=== PATIENT | female | born 1970 | race Caucasian/White ===

== ENCOUNTER 2016-08-30 12:50 | Day surgery (SDC) | payer BC ==
[2016-08-26 10:57] LABS: ABSOLUTE EOSINOPHILS # (AUTO) 0.1 10^3/uL (0.0-0.6); ABSOLUTE LYMPHOCYTES (AUTO) 1.8 10^3/uL (0.5-4.7); ABSOLUTE MONOCYTES (AUTO) 0.5 10^3/uL (0.1-1.4); BASOPHILS % (AUTO) 0.4 % (0-2); EOSINOPHILS % (AUTO) 0.7 % (0-6); HEMATOCRIT 41.7 % (36.0-47.0); HEMOGLOBIN 14.3 g/dL (12.0-15.5); HGB HCT DIFFERENCE 1.2; LYMPHOCYTES % (AUTO) 21.1 % (13-45); MEAN CORPUSCULAR HEMOGLOBIN 31.4 pg (27.0-33.4); MEAN CORPUSCULAR HGB CONC 34.3 g/dL (32.0-36.0); MEAN CORPUSCULAR VOLUME 91 fl (80-97); MONOCYTES % (AUTO) 6.4 % (3-13); RED BLOOD COUNT 4.57 10^6/uL (3.72-5.28); RED CELL DISTRIBUTION WIDTH 13.1 % (11.5-14.0); SEGMENTED NEUTROPHILS % (AUTO) 71.4 % (42-78); WHITE BLOOD COUNT 8.4 10^3/uL (4.0-10.5)
[2016-08-26 10:59] LABS: APPEARANCE,URINE CLEAR; BILIRUBIN,URINE NEGATIVE (NEGATIVE); GLUCOSE, URINE >=500 mg/dL (NEGATIVE); KETONES,URINE NEGATIVE (NEGATIVE); LEUKOCYTE ESTERASE,URINE NEGATIVE (NEGATIVE); NITRITE,URINE NEGATIVE (NEGATIVE); PROTEIN,URINE NEGATIVE (NEGATIVE); URINE SPECIFIC GRAVITY 1.028; UROBILINOGEN,URINE NEGATIVE mg/dL (<2.0)
[2016-08-26 11:29] LABS: ANION GAP 13 (5-19); BLOOD UREA NITROGEN 15 mg/dL (7-20); CALCIUM 9.3 mg/dL (8.4-10.2); CARBON DIOXIDE 26 mmol/L (22-30); CHLORIDE 102 mmol/L (98-107); CREATININE RESULT 0.49 mg/dL (0.52-1.25); GLUCOSE 103 mg/dL (75-110); POTASSIUM 4.1 mmol/L (3.6-5.0); SODIUM 140.6 mmol/L (137-145)
--- NOTE | 2016-08-26 19:02 | EKG REPORT ---
SEVERITY:- NORMAL ECG - SINUS RHYTHM : Confirmed by: Serafin Molina 26-Aug-2016 19:01:02
[~2016-08-30 12:50] MED LIST: CLINDAMYCIN 600 MG/D5W RTU 600 MG/50 ML RTUPB IV PRN; LACTATED RINGERS 1000 ML IV PRN; LIDOCAINE 0.5% INJ-PF (5 MG/ML) 50 ML SDV SUBCUT PRN
[2016-08-30] MEDS ORDERED: RINGERS SOLUTION,LACTATED 1,000 ML IV PRN (13:54)
[2016-08-30] MEDS ORDERED: LIDOCAINE 1% INJ-PF (10 MG/ML) 30 ML SDV ONE (13:59)
[2016-08-30] MEDS ORDERED: BUPIVACAINE HCL 0.5 % INJ/PF 30 ML SDV ONE (13:59)
[2016-08-30] MEDS ORDERED: METOCLOPRAMIDE HCL INJ/PF 10 MG/2 ML SDV ONE (14:00)
[2016-08-30] MEDS ORDERED: METOCLOPRAMIDE HCL INJ/PF 10 MG/2 ML SDV IV ONE (14:00)
[2016-08-30] MEDS ORDERED: SCOPOLAMINE HYDROBROMIDE 1.5 MG PATCH.TD72 TD ONE (14:00)
[2016-08-30] MEDS ORDERED: FAMOTIDINE INJ/PF 20 MG/2 ML SDV IV ONE ×2 (14:00)
[2016-08-30] MEDS ORDERED: SCOPOLAMINE HYDROBROMIDE 1.5 MG PATCH.TD72 ONE (14:00)
[2016-08-30] MEDS ORDERED: MIDAZOLAM 2 MG/2 ML INJ IV ONE (14:00)
[2016-08-30] MEDS: ALBUTEROL SULFATE 0.083% NEB 2.5 MG/3 ML AMPUL NEB ONE ×2 (14:41→20:07)
[2016-08-30] MEDS ORDERED: MIDAZOLAM 2 MG/2 ML INJ ONE (15:15)
[2016-08-30] MEDS ORDERED: FENTANYL CITRATE INJ/PF 250 MCG/5 ML AMPULE ONE (15:15)
[2016-08-30] MEDS ORDERED: ACETAMINOPHEN 100 ML IV ONE (15:16)
[2016-08-30] MEDS ORDERED: PROPOFOL INJ 200 MG/20 ML VIAL IV ONE (15:16)
[2016-08-30] MEDS ORDERED: DEXAMETHASONE SOD PHOSPHATE INJ 4 MG/1 ML VIAL ONE (15:56)
[2016-08-30] MEDS ORDERED: SUCCINYLCHOLINE CHLORIDE INJ 200 MG/10 ML VIAL ONE (15:56)
[2016-08-30] MEDS ORDERED: LIDOCAINE 2% INJ-PF (20 MG/ML) 10 ML AMPUL ONE (15:56)
[2016-08-30] MEDS ORDERED: ONDANSETRON HCL INJ/PF 4 MG/2 ML SDV ONE (15:56)
[2016-08-30] MEDS ORDERED: KETOROLAC TROMETHAMINE 60 MG/2 ML SDV ONE (15:56)
[2016-08-30] MEDS ORDERED: DIPHENHYDRAMINE HCL 50 MG/ML VIAL IV PRN (16:28)
[2016-08-30] MEDS ORDERED: FENTANYL CITRATE INJ/PF 100 MCG/2 ML AMPUL IV PRN ×3 (16:28)
[2016-08-30] MEDS ORDERED: PROMETHAZINE HCL INJ 25 MG/1 ML VIAL IV PRN ×2 (16:28)
[2016-08-30] MEDS ORDERED: OXYCODONE-ACETAMINOPHEN 5-325 MG TABLET PO PRN ×3 (16:28→17:12)
[2016-08-30] MEDS ORDERED: MEPERIDINE HCL/PF INJ 25 MG/1 ML DISP.SYRIN IV PRN (16:28)
[2016-08-30] MEDS ORDERED: MORPHINE SULFATE 10 MG/ML INJ IV PRN (16:28)
[2016-08-30] MEDS ORDERED: ONDANSETRON HCL INJ/PF 4 MG/2 ML SDV IV PRN (17:12)
--- NOTE | 2016-08-30 17:20 | Operative Report ---
Operative Report DATE OF SURGERY: 08/30/16 PREOPERATIVE DIAGNOSIS: Right Carpal Tunnel Syndrome, Cubital Tunnel Syndrome, Small Trigger Finger POSTOPERATIVE DIAGNOSIS: Same OPERATION: Right Cubital Tunnel Release, Endoscopic Carpal Tunnel Release, A1 Shalom Release Small Finger SURGEON: CYDNEY CORONADO ANESTHESIA: GA COMPLICATIONS: None ESTIMATED BLOOD LOSS: Minimal PROCEDURE: Indication for above procedure: 46-year-old female who presented to my office with findings and symptoms consistent with carpal tunnel, cubital tunnel syndrome and concomitant small finger trigger digit. At that point we discussed treatment options including continued conservative management versus operative intervention. After discussing surgery and its alternatives the joint decision was made to proceed with operative intervention. Procedure In Detail: Patient was seen and evaluated in the preoperative holding area. The RIGHT upper extremity was initialized and marked. Patient received 2g of Ancef IV for bacterial prophylaxis. Patient was taken back to the operative room where transferred to the operative table and placed under general anesthesia. Once they were adequately anesthetized and a nonsterile tourniquet was placed on the upper extremity. A surgical team debriefing was performed ensuring all instrumentation was available, the surgical procedure was discussed with possible concerns reviewed. The upper extremity was prepped with chlorhexidine and alcohol and draped in a sterile fashion. A timeout was done identifying correct patient, procedure and extremity everyone in attendance agree with this and verbalized no concerns. The extremity was exsanguinated the tourniquet was inflated to 250 mmHg. A longitudinal skin incision was made centered over the cubital tunnel. Careful dissection was done through the overlying soft tissues any peripheral vasculature was carefully coagulated with bipolar cautery. The branches of the medial antebrachial cutaneous nerve were identified and protected throughout the entirety of the case. Once within the confines of the cubital tunnel the ulnar nerve was identified at the proximal aspect of the wound. At this level I carefully released a medial portion of the triceps and the medial intermuscular septum freeing the ulnar nerve proximally of any overlying soft tissue compression. I then continued to track the ulnar nerve distally releasing Garcia's fascia. At the level of the FCU aponeurosis between the 2 heads of the FCU muscle. The fascia was released once again relieving any external compression from the ulnar nerve distally to the level of the first motor branch. I then freed up the nerve posteriorly ensuring there is no remaining soft tissue bands of tissue causing compression. During dissection of the nerve careful attention was directed at avoiding disruption of the ulnar nerve blood supply posteriorly. Elbow range of motion was then done from full flexion to full extension with full flexion there was no evidence of anterior subluxation of the ulnar nerve from the groove. And thus I determine patient would not require anterior subcutaneous ulnar nerve transposition. A peripheral vasculature was coagulated with bipolar cautery. Wound was irrigated with normal saline. Subcutaneous tissues were closed with interrupted 4-0 Monocryl and skin was closed a running subcuticular 3-0 Monocryl which will be later reinforced with Dermabond and Steri-Strips. A transverse skin incision was made just proximal to the wrist flexion crease ulnar to the palmaris longus. Blunt dissection was performed down to the palmaris longus tendon which was retracted radially. Deep to the palmaris longus tendon was the volar carpal ligament this was incised identifying the median nerve deep. With the use of a Chambers elevator any soft tissue was freed from the undersurface of the distal transverse carpal ligament. The hook of hamate was identified ulnarly. The ConMed cannulas were then introduced beginning with #1 progressing to a #3 gently dilating the carpal canal. I then introduced the scope within the cannula and identified transverse carpal ligament ensuring the median nerve was not visualized within the cannula. I triangulated distally with a 25-gauge needle identifying the distal aspect of the transverse carpal ligament, to ensure protection of the superficial palmar arch. The arthroscopic knife was used to incise the transverse carpal ligament under direct visualization with the arthroscopic camera. Any excess transverse fibers that remained after the first past were carefully released with a repeat pass. The median nerve was then directly visualized radially without disruption. Once this was completed I placed the #3 dilator and assured I got complete release of the transverse carpal ligament without residual compression. The median nerve was directly visualized and free of any overlying compression. I then turned my attention to release of the volar antebrachial fascia proximally. Once again a Chambers was used to open the wound and I proceeded with cannula #1 to #3. The arthroscope was introduced into the cannula and under direct visualization the volar antebrachial fascia was released. Once this was complete I copiusly irrigated the wound with normal saline. The skin incision was closed with 4-0 Monocryl subcutaneous and a running subcuticular 4-0 Monocryl. This was later reinforced with Dermabond and Steri-Strips. A oblique skin incision was made centered over the A1 shalom of the small finger. The radial and ulnar neurovascular bundles were identified and retracted from the wound. The A1 shalom was identified and incised. The A1 shalom was released to the level of the A2 shalom but not through the A2 shalom. The palmar aponeurotic shalom was released proximal to the A1 shalom. The tendon was retracted from the wound there is no residual catching or clicking with passive motion. Skin was closed with interrupted 3-0 Monocryl suture. Wounds were dressed with 4 x 4's, Torrez roll and Eric bandage. Sponge counts, instrument counts, needle counts counts were correct. Patient was then awoken from anesthesia. Transferred from the operating room table to the operating room stretcher. There was no intraoperative complications patient tolerated procedure well stable to PACU. Postoperative plan: Patient will follow-up in the office as scheduled which point we will proceed with wound check. She may begin gentle range of motion exercises but avoid any heavy lifting until her first postoperative appointment.
--- NOTE | 2016-08-30 17:22 | PDOC DISCHARGE SUMMARY ---
Discharge Summary (SDC) - Discharge Final Diagnosis: Right Carpal/Cubital Tunnel Syndrome, Small Finger Trigger Digit. Date of Surgery: 08/30/16 Discharge Date: 08/30/16 Condition: Good Forms: ASU Anesthesia D/C Instruction, Discharge POC-Surgical Service Treatment or Instructions: Schedule Follow Up w/ Dr. Jewel Coronado @ [facility] for Surgery to be seen in 10-14 days or as scheduled [place]: [place]: [place]: May remove dressing on postop day #3, keep incision covered and dry. Ice and elevate May begin finger range of motion attempting to make full fist. Stool softener of choice when on pain medication. Prescriptions: Oxycodone HCl/Acetaminophen [Percocet 5-325 mg Tablet] 1 - 2 tab PO ASDIR PRN # 50 tablet PRN Reason: Referrals: JEWEL CORONADO DO [ACTIVE STAFF] - Discharge Diet: As Tolerated Respiratory Treatments at Home: Deep Breathing/Coughing Discharge Activity: No Lifting Over 10 Pounds, No Lifting/Push/Pulling Report the Following to Your Physician Immediately: Fever over 101 Degrees, Unusual Bleeding, Redness, Swelling, Warmth, Numbness, Tingling Sensation
[2016-08-30] MEDS ORDERED: KETOROLAC TROMETHAMINE INJ/PF 30 MG/1 ML SDV IV PRN (19:46)
[2016-08-30 21:57] VITALS: BP 91/49
[2016-08-31] MEDS ORDERED: ACETAMINOPHEN 100 ML IV ONE (04:00)
== END 2016-08-30 22:10 | disposition home or self-care (01) ==
LOC: OROUT 12:50 → 4N 19:14 → OROUT 22:10
PROVIDERS: ATTEND Orthopaedic Surgery
PROC: 01N40ZZ Release Ulnar Nerve, Open Approach (ICD-10-PCS; principal; 2016-08-30 14:30)
PROC: 01N54ZZ Release Median Nerve, Percutaneous Endoscopic Approach (ICD-10-PCS; 2016-08-30 14:30)
PROC: 0LN70ZZ Release Right Hand Tendon, Open Approach (ICD-10-PCS; 2016-08-30 14:30)
DX: M65.351 Trigger finger, right little finger (principal); G56.01 Carpal tunnel syndrome, right upper limb; G56.21 Lesion of ulnar nerve, right upper limb; M25.531 Pain in right wrist; F17.210 Nicotine dependence, cigarettes, uncomplicated; E11.9 Type 2 diabetes mellitus without complications; G47.419 Narcolepsy without cataplexy; K21.9 Gastro-esophageal reflux disease without esophagitis; Z88.0 Allergy status to penicillin; Z79.899 Other long term (current) drug therapy; Z79.4 Long term (current) use of insulin
CPT/HCPCS: 93005; 36415; 82962; 85025; 81025; 80048; 81001; 83036; 71020; 93010; 94762; 64718; 29848; 26055; J2250; J1100; J1885 ×2; J3010; J3490 ×2; J2765; J0330; J2405; J2704; S0028; J0131; 1810

== ENCOUNTER 2017-03-23 09:15 | Emergency (ER) | payer SELFPAY ==
--- NOTE | 2017-03-23 09:30 | ER Document Report ---
HPI - HPI Patient complains to provider of: left thumb pain Onset: Other - several weeks, worse last week Onset/Duration: Gradual, Persistent, Worse Pain Level: 5 Context: 47-year-old right-handed female that works in the [email or web address] is complaining of left thumb pain that radiates from the MCP joint to mid forearm especially when she drives and has her hand around the steering wheel or working. No injury that she is aware of. No history of arthritis. LMP March 02. Associated Symptoms: None Exacerbated by: Movement Relieved by: Denies Similar symptoms previously: No Recently seen / treated by doctor: No - ROS ROS below otherwise negative: Yes Systems Reviewed and Negative: Yes All other systems reviewed and negative - REPRODUCTIVE Reproductive: DENIES: : - DERM Skin Color: Normal Past Medical History - General Information source: Patient - Social History Smoking Status: Unknown if Ever Smoked Frequency of alcohol use: None Drug Abuse: None Occupation: [email or web address] Lives with: Family Family History: Arthritis, CAD, COPD, CVA, DM, Hyperlipidemia, Hypertension, Malignancy. denies: Thyroid Disfunction Patient has suicidal ideation: No Patient has homicidal ideation: No Pulmonary Medical History: Reports: Hx Asthma - A CHILD, Hx Bronchitis, Hx Pneumonia Endocrine Medical History: Reports: Hx Diabetes Mellitus Type 2 Renal/ Medical History: Denies: Hx Peritoneal Dialysis GI Medical History: Reports: Hx Gastroesophageal Reflux Disease Musculoskeltal Medical History: Reports Hx Arthritis - HANDS, Reports Hx Musculoskeletal Deformity - Carpal tunnel, Reports Hx Musculoskeletal Trauma Traumatic Medical History: Reports: Hx Fractures - Fifth toe left foot Past Surgical History: Reports: Hx Appendectomy, Hx Orthopedic Surgery - Carpal tunnel left - Immunizations Hx Diphtheria, Pertussis, Tetanus Vaccination: Yes Vertical Provider Document - CONSTITUTIONAL Agree With Documented VS: Yes - INFECTION CONTROL TRAVEL OUTSIDE OF THE [place] IN LAST 30 DAYS: No - HEENT HEENT: Normocephalic - NECK Neck: Supple - RESPIRATORY O2 Sat by Pulse Oximetry: 100 - MUSCULOSKELETAL/EXTREMETIES Musculoskeletal/Extremeties: FROM, Tender - left base of thumb over radial tendon, No Edema Notes: non tender snuffbox - NEURO Level of Consciousness: Awake, Alert - DERM Integumentary: Warm, Dry Course - Re-evaluation Re-evalutation: 03/23/17 10:21 X-ray is negative - Vital Signs Vital signs: Temp Pulse Resp BP Pulse Ox 97.7 F 102 H 20 140/84 H 100 03/23/17 09:17 03/23/17 09:17 03/23/17 09:17 03/23/17 09:17 03/23/17 09:17 Procedures - Immobilization Left Thumb Time completed: 10:17 Pre-Proc Neuro Vasc Exam: Normal Immobilizer type: Thumb spica Performed by: PCT Post-Proc Neuro Vasc Exam: Normal Alignment checked and good: Yes Discharge - Discharge Clinical Impression: Left thumb tendinitis Condition: Good Disposition: HOME, SELF-CARE Instructions: Warm Packs ([facility]), Anti-Inflammatory Medication ([facility]), Temporary Splint ([facility]), Splint Precautions ([facility]), Tendonitis ([facility]), Acetaminophen Additional Instructions: splint few days see orthopedic doctor if persists warm compress motrin tylenol Please complete the patient satisfaction survey if you get one, and return it.. If you do not receive a survey, then you can go to the [facility] website, [email or web address] and place your comments about your very good care. Thank you very much. It was a pleasure being your medical provider today. Prescriptions: Ibuprofen [Motrin 600 mg Tablet] 600 mg PO Q8HP PRN #30 tablet PRN Reason: Forms: Return to Work Referrals: CYDNEY CORONADO, [ACTIVE STAFF] - Follow up as needed
[2017-03-23] MEDS ORDERED: ACETAMINOPHEN 325 MG TABLET PO ONE (09:45)
[2017-03-23] MEDS ORDERED: KETOROLAC TROMETHAMINE 60 MG/2 ML SDV IM ONE (09:45)
--- NOTE | 2017-03-23 10:29 | ER Document Report ---
HPI - HPI Patient complains to provider of: Left low back pain which radiates down her left leg Onset: Other - Several weeks Onset/Duration: Gradual, Worse Pain Level: 5 Context: 47 yo female with hx intermittent low back pain due to herniated disc developed it again since last week. Thought she was getting better until she stumbled over dog on friday. No saddle anesthesia, some pain into legs. No fever, IV drug use. Associated Symptoms: None Exacerbated by: Sitting, Movement Relieved by: Denies Similar symptoms previously: No Recently seen / treated by doctor: No - ROS ROS below otherwise negative: Yes Systems Reviewed and Negative: Yes All other systems reviewed and negative - REPRODUCTIVE Reproductive: DENIES: : - DERM Skin Color: Normal Past Medical History - General Information source: Patient - Social History Smoking Status: Unknown if Ever Smoked Frequency of alcohol use: None Drug Abuse: None Occupation: [employer] Lives with: Family Family History: Arthritis, CAD, COPD, CVA, DM, Hyperlipidemia, Hypertension, Malignancy. denies: Thyroid Disfunction Patient has suicidal ideation: No Patient has homicidal ideation: No Pulmonary Medical History: Reports: Hx Asthma - A CHILD, Hx Bronchitis, Hx Pneumonia Endocrine Medical History: Reports: Hx Diabetes Mellitus Type 2 Renal/ Medical History: Denies: Hx Peritoneal Dialysis GI Medical History: Reports: Hx Gastroesophageal Reflux Disease Musculoskeltal Medical History: Reports Hx Arthritis - HANDS, Reports Hx Musculoskeletal Deformity - Carpal tunnel, Reports Hx Musculoskeletal Trauma Traumatic Medical History: Reports: Hx Fractures - Fifth toe left foot Past Surgical History: Reports: Hx Appendectomy, Hx Orthopedic Surgery - Carpal tunnel left - Immunizations Hx Diphtheria, Pertussis, Tetanus Vaccination: Yes Vertical Provider Document - CONSTITUTIONAL Agree With Documented VS: Yes Exam Limitations: No Limitations General Appearance: No Apparent Distress - INFECTION CONTROL TRAVEL OUTSIDE OF THE [place] IN LAST 30 DAYS: No - HEENT HEENT: Normocephalic - NECK Neck: Supple - RESPIRATORY Respiratory: Breath Sounds Normal, No Respiratory Distress O2 Sat by Pulse Oximetry: 100 - CARDIOVASCULAR Cardiovascular: Regular Rate, Regular Rhythm - GI/ABDOMEN Gastrointestinal: Abdomen Soft, Abdomen Non-Tender - BACK Back: Normal Inspection - tender left SI joint - MUSCULOSKELETAL/EXTREMETIES Musculoskeletal/Extremeties: MAEW, FROM, Tender - see above - NEURO Level of Consciousness: Awake, Alert Motor/Sensory: No Motor Deficit, No Sensory Deficit Deep Tendon Reflexes: 2+ - winnie ankle and patellar Course - Re-evaluation Re-evalutation: 03/23/17 10:49 Pain level down to 3/5 with traction on her left leg. X-ray shows arthropathy SI joints. We discussed stretching for sciatica and seeing a chiropractor. 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 If you do not receive a survey, then you can go to the [facility] website, [email or web address] and place your comments about your very good care. Thank you very much. It was a pleasure being your medical provider today. Prescriptions: Cyclobenzaprine HCl [Flexeril 10 Mg Tablet] 10 mg PO TIDP PRN #20 tablet PRN Reason: Forms: Return to Work Referrals: LISSETTE GRESHAM MD [NO LOCAL MD] - Follow up as needed MARLENI BARBA DC [CHIROPRACTOR] - Follow up as needed
--- NOTE | 2017-03-23 10:37 | RADIOLOGY REPORT (SQ) ---
EXAM DESCRIPTION: L SPINE WHOLE COMPLETED DATE/TIME: 03/23/2017 10:18 am REASON FOR STUDY: si joint pain, fall COMPARISON: None. NUMBER OF VIEWS: Five views including obliques. TECHNIQUE: AP, lateral, oblique, and sacral radiographic images acquired of the lumbar spine. LIMITATIONS: None. FINDINGS: MINERALIZATION: Normal. SEGMENTATION: Normal. No transitional anatomy. ALIGNMENT: Normal. VERTEBRAE: Maintained height. No fracture or worrisome bone lesion. DISCS: Preserved height. No significant osteophytes or end plate irregularity. POSTERIOR ELEMENTS: Pedicles and facets are intact. No pars defect or posterior arch defects. HARDWARE: None in the spine. PARASPINAL SOFT TISSUES: Normal. PELVIS: Sclerosis inferior margin of both SI joints. OTHER: No other significant finding. IMPRESSION: SI joint arthropathy. No acute findings. TECHNICAL DOCUMENTATION: JOB ID: [id number] [employer]- All Rights Reserved
[2017-03-23 11:02] VITALS: BP 103/75
== END 2017-03-23 11:00 | disposition home or self-care (01) ==
LOC: ER 09:15
DX: M47.898 Other spondylosis, sacral and sacrococcygeal region (principal); M54.40 Lumbago with sciatica, unspecified side; E11.9 Type 2 diabetes mellitus without complications
CPT/HCPCS: 99283; 96372; 72110; J1885

== ENCOUNTER 2017-09-24 17:45 | Emergency (ER) | payer SELFPAY ==
[2017-09-24 17:57] VITALS: BP 142/75
[2017-09-24] MEDS ORDERED: SULFAMETHOXAZOLE/TRIMETHOPRIM 800-160 MG TABLET PO ONE (19:31)
[2017-09-24] MEDS ORDERED: PROCHLORPERAZINE MALEATE 10 MG TABLET PO ONE (19:32)
[2017-09-24] MEDS ORDERED: DIPHENHYDRAMINE HCL 25 MG CAPSULE PO ONE (19:32)
[2017-09-24] MEDS ORDERED: NAPROXEN 250 MG TABLET PO ONE (19:32)
--- NOTE | 2017-09-24 19:34 | ER Document Report ---
ED Medical Screen (RME) - General Chief Complaint: Headache Stated Complaint: HEADACHE Time Seen by Provider: 09/24/17 19:28 Notes: 47-year-old female patient complains of headache for the past 4 days and sores on her head that are quite tender. She reported a similar sore on the right frontal scalp a few weeks ago that left a small divot. She states it started like a little pimple. At this time there is a scabbed area that is tender in her left occipital parietal region. Scalp muscles are tender, posterior cervical muscles are tender. 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 She appears to most likely have MRSA folliculitis which is provoking a muscle contraction type headache. I have greeted and performed a rapid initial assessment of this patient. A comprehensive ED assessment and evaluation of the patient, analysis of test results and completion of the medical decision making process will be conducted by additional ED providers. TRAVEL OUTSIDE OF THE [place] IN LAST 30 DAYS: No - Related Data Allergies/Adverse Reactions: Penicillins Allergy (Verified 09/24/17 17:47) Past Medical History - Social History Chew tobacco use (# tins/day): No Frequency of alcohol use: Rare Drug Abuse: None - Past Medical History Cardiac Medical History: Denies: Hx Coronary Artery Disease, Hx Heart Attack, Hx Hypertension Pulmonary Medical History: Reports: Hx Asthma - A CHILD, Hx Bronchitis, Hx Pneumonia Denies: Hx COPD Neurological Medical History: Denies: Hx Cerebrovascular Accident, Hx Seizures Endocrine Medical History: Reports: Hx Diabetes Mellitus Type 2 Renal/ Medical History: Denies: Hx Peritoneal Dialysis GI Medical History: Reports: Hx Gastroesophageal Reflux Disease Musculoskeltal Medical History: Reports Hx Arthritis - HANDS, Reports Hx Musculoskeletal Deformity - Carpal tunnel, Reports Hx Musculoskeletal Trauma Traumatic Medical History: Reports: Hx Fractures - Fifth toe left foot Past Surgical History: Reports: Hx Appendectomy, Hx Orthopedic Surgery - Carpal tunnel left - Immunizations Hx Diphtheria, Pertussis, Tetanus Vaccination: Yes Physical Exam - Vital signs Vitals: Temp Pulse Resp BP Pulse Ox 98.7 F 91 20 142/75 H 100 09/24/17 17:54 09/24/17 17:54 09/24/17 17:54 09/24/17 17:54 09/24/17 17:54 Course - Vital Signs Vital signs: Temp Pulse Resp BP Pulse Ox 98.7 F 91 20 142/75 H 100 09/24/17 17:54 09/24/17 17:54 09/24/17 17:54 09/24/17 17:54 09/24/17 17:54
--- NOTE | 2017-09-24 20:43 | ER Document Report ---
ED Headache - General Chief Complaint: Headache Stated Complaint: HEADACHE Time Seen by Provider: 09/24/17 19:28 Mode of Arrival: Ambulatory Information source: Patient TRAVEL OUTSIDE OF THE [place] IN LAST 30 DAYS: No - HPI Patient complains to provider of: Headache Notes: Patient is here with complaints of sores to her head and headache. 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 She does not typically wear gloves while cleaning. She states that she had a lesion to the front of her head several months ago that she picked it left a divot. 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 States that she has had some lesions to the posterior aspect of her head for the last week or so and over the last 4 days she has developed a headache. She denies fever. She denies blurred or loss vision. No numbness, tingling, weakness. No nausea, vomiting, diarrhea. She denies any neck stiffness. No chest pain or shortness of breath. No abdominal pain. No blurred or loss vision. She is not on blood thinning medications. She states that this was not a sudden onset, thunderclap type headache that it has been gradual over the last several days. - Related Data Allergies/Adverse Reactions: Penicillins Allergy (Verified 09/24/17 17:47) Past Medical History - Social History Smoking Status: Current Every Day Smoker Chew tobacco use (# tins/day): No Frequency of alcohol use: Rare Drug Abuse: None Family History: Arthritis, CAD, COPD, CVA, DM, Hyperlipidemia, Hypertension, Malignancy. denies: Thyroid Disfunction Patient has suicidal ideation: No Patient has homicidal ideation: No - Past Medical History Cardiac Medical History: Denies: Hx Coronary Artery Disease, Hx Heart Attack, Hx Hypertension Pulmonary Medical History: Reports: Hx Asthma - A CHILD, Hx Bronchitis, Hx Pneumonia Denies: Hx COPD Neurological Medical History: Denies: Hx Cerebrovascular Accident, Hx Seizures Endocrine Medical History: Reports: Hx Diabetes Mellitus Type 2 Renal/ Medical History: Denies: Hx Peritoneal Dialysis GI Medical History: Reports: Hx Gastroesophageal Reflux Disease Musculoskeltal Medical History: Reports Hx Arthritis - HANDS, Reports Hx Musculoskeletal Deformity - Carpal tunnel, Reports Hx Musculoskeletal Trauma Traumatic Medical History: Reports: Hx Fractures - Fifth toe left foot Past Surgical History: Reports: Hx Appendectomy, Hx Orthopedic Surgery - Carpal tunnel left - Immunizations Hx Diphtheria, Pertussis, Tetanus Vaccination: Yes Review of Systems - Review of Systems -: Yes All other systems reviewed and negative Physical Exam - Vital signs Vitals: Temp Pulse Resp BP Pulse Ox 98.7 F 91 20 142/75 H 100 09/24/17 17:54 09/24/17 17:54 09/24/17 17:54 09/24/17 17:54 09/24/17 17:54 - Notes Notes: GENERAL: alert, cooperative, nontoxic, no distress. HEAD: normocephalic, atraumatic. Patient noted to have several small scabbed tender areas to the posterior scalp with mild tenderness to the surrounding area and posterior cervical lymphadenopathy bilaterally. No drainage. No drainable abscess. EYES: conjunctiva pink without discharge, no external redness or swelling. Pupils are equal, round, reactive to light. EARS: no external swelling, no external redness NOSE: atraumatic, no external swelling MOUTH/THROAT: mucous membranes moist and pink, posterior pharynx without erythema, swelling, exudate. No trismus or drooling. NECK: soft, supple, full range of motion, no meningismus. CHEST: no distress, lungs clear and equal throughout. No wheezing, rales, rhonchi. CARDIAC: regular rate and rhythm, no murmur, normal capillary refill, normal pulses. No peripheral edema noted. BACK: full range of motion, no CVA tenderness. EXTREMITIES: full range of motion of all extremities. No redness, no swelling. NEURO: alert and oriented x 3, cranial nerves II through XII are grossly intact. Upper and lower extremities are equal throughout. Normal sensation. No focal deficits, full range of motion of all extremities. normal finger to nose. PYSCH: appropriate mood, affect. Patient is cooperative. SKIN: pink, warm, dry, no rash. Course - Re-evaluation Re-evalutation: 09/24/17 20:40 The patient is nontoxic appearing with stable vitals. The patient is here with complaints of lesions to the top of her head as well as a headache. The lesions have been present for about a week now the headache is been present for about 4 days. No head injury. No blood thinners. This was not a sudden onset , thunderclap type headache. It was a gradual headache. On exam the patient is noted to have multiple scabbed areas to the posterior scalp consistent with possible MRSA folliculitis. There is no surrounding significant cellulitis and no drainable abscess noted. The posterior musculature of the head as well as the posterior cervical lymph nodes are swollen likely secondary to the folliculitis that she has and this is the most likely source of the headache that she is experiencing. Patient has no signs or risk or exam findings consistent with meningitis or subarachnoid hemorrhage. She was given medications here in emergency department is feeling somewhat better at this time. This point the patient will be discharged home with a prescription for Naprosyn as well as Bactrim. Instructions to apply warm compresses to sore area. Avoid picking the area. Follow-up if not improving in the next 2-3 days , sooner for worsening symptoms, high fever, neck stiffness, blurred or loss vision, numbness, tingling, weakness, redness, any further concerns. The patient is noted to have elevated blood pressure during today's emergency department visit. The patient was informed of this finding. The patient was instructed that this may be related to pre-hypertension and requires further evaluation with a primary care provider. The patient has no hypertensive symptoms at this time. The patient's emergency department workup and current diagnosis were explained to the patient and or family. Follow-up instructions were provided. Medications if prescribed were discussed. Instructions for when to return to the emergency department including specific worrisome symptoms were discussed with the patient and/or family. - Vital Signs Vital signs: Temp Pulse Resp BP Pulse Ox 98.7 F 91 20 142/75 H 100 09/24/17 17:54 09/24/17 17:54 09/24/17 17:54 09/24/17 17:54 09/24/17 17:54 Discharge - Discharge Clinical Impression: Folliculitis Headache Qualifiers: Headache type: unspecified Headache chronicity pattern: acute headache Intractability: not intractable Qualified Code(s): R51 - Headache Condition: Stable Disposition: HOME, SELF-CARE Instructions: Folliculitis ([facility]), Headache ([facility]) Additional Instructions: Take medication as prescribed. Avoid picking at the scabs on her head. Apply warm compresses to the sore area. Follow-up if not better in the next 3-5 days , sooner for worsening symptoms, high fever, severe pain, persistent vomiting, blurred vision, numbness, tingling, weakness, neck stiffness, or for any further concerns. Your blood pressure was elevated during today's visit. Have this rechecked with your doctor. Prescriptions: Naproxen [Naprosyn] 500 mg PO BID #20 tablet Sulfamethoxazole/Trimethoprim [Bactrim Ds Tablet] 1 each PO BID #20 tablet Forms: Elevated Blood Pressure, Smoking Cessation Education Referrals: [facility] [Provider Group] - Follow up as needed
== END 2017-09-24 20:54 | disposition home or self-care (01) ==
LOC: ER 17:45
DX: L73.9 Follicular disorder, unspecified (principal); R51 Headache; F17.200 Nicotine dependence, unspecified, uncomplicated; R59.0 Localized enlarged lymph nodes; R03.0 Elevated blood-pressure reading, without diagnosis of hypertension
CPT/HCPCS: 99283; S0183

== ENCOUNTER 2018-03-18 23:06 | Emergency (ER) | payer SELFPAY ==
[2018-03-19] MEDS ORDERED: MUPIROCIN 2% OINTMENT 22 GM TP ONE (00:01)
[2018-03-19] MEDS ORDERED: SULFAMETHOXAZOLE/TRIMETHOPRIM 800-160 MG TABLET PO ONE (00:01)
--- NOTE | 2018-03-19 00:08 | ER Document Report ---
ED Skin Rash/Insect Bite/Abscs - General Chief Complaint: Wound Infection Stated Complaint: SCALP PROBLEM Time Seen by Provider: 03/18/18 23:25 Mode of Arrival: Ambulatory Information source: Patient Notes: 48-year-old female presented to ED for a very tender painful sore to the top of the back of her head. She states she has had this in the past and was treated with antibiotics and it went away but it came back. Patient states she is allergic to penicillin so they gave her something different for the infection last time when they told her it was a staph infection. She is alert and oriented respirations regular and unlabored speaking in full sentences walks with a even steady gait. TRAVEL OUTSIDE OF THE [place] IN LAST 30 DAYS: No - HPI Patient complains to provider of: Other - Scabbed over folliculitis top of her head Onset: Other - 2 weeks Onset/Duration: Gradual, Worse Quality of pain: Sharp, Throbbing Severity: Moderate Pain Level: 4 Skin Character: Lesion Quality of rash: Painful Identify cause: No Exacerbated by: Denies Relieved by: Denies Similar symptoms previously: Yes Recently seen / treated by doctor: No - Related Data Allergies/Adverse Reactions: Penicillins Allergy (Verified 09/24/17 17:47) Past Medical History - General Information source: Patient - Social History Smoking Status: Current Every Day Smoker Cigarette use (# per day): Yes - ppd Smoking Education Provided: Yes - 4min Frequency of alcohol use: None Drug Abuse: None Occupation: [employer] Lives with: Family Family History: Arthritis, CAD, COPD, CVA, DM, Hyperlipidemia, Hypertension, Malignancy. denies: Thyroid Disfunction Patient has suicidal ideation: No Patient has homicidal ideation: No - Past Medical History Cardiac Medical History: Reports: None Pulmonary Medical History: Reports: Hx Asthma - A CHILD, Hx Bronchitis, Hx Pneumonia EENT Medical History: Reports: None Neurological Medical History: Reports: None Endocrine Medical History: Reports: Hx Diabetes Mellitus Type 2 Renal/ Medical History: Reports: None Malignancy Medical History: Reports: None GI Medical History: Reports: Hx Gastroesophageal Reflux Disease Musculoskeletal Medical History: Reports Hx Arthritis - HANDS, Reports Hx Musculoskeletal Deformity - Carpal tunnel, Reports Hx Musculoskeletal Trauma Skin Medical History: Reports None Psychiatric Medical History: Reports: None Traumatic Medical History: Reports: Hx Fractures - Fifth toe left foot Infectious Medical History: Reports: None Past Surgical History: Reports: Hx Appendectomy, Hx Orthopedic Surgery - Carpal tunnel left - Immunizations Hx Diphtheria, Pertussis, Tetanus Vaccination: Yes Review of Systems - Review of Systems Notes: REVIEW OF SYSTEMS: CONSTITUTIONAL : Denies fever, chills, or sweats. Denies recent illness. EENT: Denies eye, ear, throat, or mouth pain or symptoms. Denies nasal or sinus congestion or discharge. Denies throat, tongue, or mouth swelling or difficulty swallowing. CARDIOVASCULAR: Denies chest pain. Denies palpitations or racing or irregular heart beat. Denies ankle edema. RESPIRATORY: Denies cough, cold, or chest congestion. Denies shortness of breath, difficulty breathing, or wheezing. GASTROINTESTINAL: Denies abdominal pain or distention. Denies nausea, vomiting , or diarrhea. Denies blood in vomitus, stools, or per rectum. Denies black, tarry stools. Denies constipation. GENITOURINARY: Denies difficulty urinating, painful urination, burning, frequency, blood in urine, or discharge. FEMALE GENITOURINARY: Denies vaginal bleeding, heavy or abnormal periods, irregular periods. Denies vaginal discharge or odor. MUSCULOSKELETAL: Denies back or neck pain or stiffness. Denies joint pain or swelling. SKIN: Lesion to the top posterior scalp that is painful to touch HEMATOLOGIC : Denies easy bruising or bleeding. LYMPHATIC: Denies swollen, enlarged glands. NEUROLOGICAL: Denies confusion or altered mental status. Denies passing out or loss of consciousness. Denies dizziness or lightheadedness. Denies headache. Denies weakness or paralysis or loss of use of either side. Denies problems with gait or speech. Denies sensory loss, numbness, or tingling. Denies seizures. PHYSICAL EXAMINATION: GENERAL: Well-appearing, well-nourished and in no acute distress. HEAD: Atraumatic, normocephalic. EYES: Pupils equal round and reactive to light, extraocular movements intact, conjunctiva are normal. ENT: Nares patent, oropharynx clear without exudates. Moist mucous membranes. NECK: Normal range of motion, supple without lymphadenopathy LUNGS: Breath sounds clear to auscultation bilaterally and equal. No wheezes rales or rhonchi. HEART: Regular rate and rhythm without murmurs ABDOMEN: Soft, nontender, nondistended abdomen. No guarding, no rebound. No masses appreciated. Female : deferred Musculoskeletal: Normal range of motion, no pitting or edema. No cyanosis. NEUROLOGICAL: Cranial nerves grossly intact. Normal speech, normal gait. Normal sensory, motor exams PSYCH: Normal mood, normal affect. SKIN: Lesion to the posterior top of her scalp. She states is been there for several days and is getting very painful. She states she had this in the past and was treated with Bactrim and the symptoms were relieved. She states she does not have a primary doctor or insurance. PSYCHIATRIC: Denies anxiety or stress. Denies depression, suicidal ideation, or homicidal ideation. ALL OTHER SYSTEMS REVIEWED AND NEGATIVE. Dictation was performed using [employer] voice recognition software Physical Exam - Vital signs Vitals: Temp Pulse Resp BP Pulse Ox 97.9 F 96 16 155/84 H 99 03/18/18 23:12 03/18/18 23:12 03/18/18 23:12 03/18/18 23:12 03/18/18 23:12 Course - Re-evaluation Re-evalutation: 03/19/18 01:22 Treated with Bactrim and Bactroban and discharged home with prescriptions for the same. Patient was given instructions on wound care. Patient to follow-up with primary doctor. - Vital Signs Vital signs: Temp Pulse Resp BP Pulse Ox 97.9 F 78 16 122/76 100 03/18/18 23:12 03/19/18 00:46 03/19/18 00:46 03/19/18 00:46 03/19/18 00:46 Discharge - Discharge Clinical Impression: folliculits of scalp Condition: Stable Disposition: HOME, SELF-CARE Instructions: Family Physicians / Practices Additional Instructions: Folliculitis You have a skin infection called folliculitis. This occurs when bacteria infect the hair follicles of the skin. Typically, redness and small pustules are found where hair shafts enter the skin. Allergy, surface irritation, shaving, and exposure to hot tubs predispose to folliculitis. The usual treatment is antibiotic ointment, sometimes combined with cortisone-type medication. Warm compresses are often used. If the infection has moved deeper into the skin, oral antibiotics may be necessary. To avoid future episodes of folliculitis, you must identify (if possible) the factors which allowed this infection to start. If you develop increasing pain, swelling, fever, or red streaks, call the doctor or return for re-evaluation. TRIMETHOPRIM-SULFA: You have been given a prescription for trimethoprim-sulfa (TMS, Septra, Bactrim). This is a combination antibiotic of the sulfa class, often used for urinary tract infections, middle ear infections, bronchitis, shigella intestinal infection, and Pneumocystis pneumonia. TMS is usually well-tolerated. Occasional side effects include nausea and decreased appetite. Septra is not recommended for infants less than two months of age. Do not take this medication if you have experienced severe side effects or allergy to sulfa medicine. You should stop this medicine at once and contact your physician if you develop any rash, joint pain, shortness of breath, bruising, or jaundice ( yellow color in the skin), or if you develop any other new or unusual symptoms. Soap Cleansing Gently wash the wound daily using a mild soap (like Ivory, Phisoderm, Neutrogena). Use warm water, rubbing gently until all debris, ooze, and crusting have been washed from the wound. Allow to dry briefly (about 10 minutes) after cleaning. Repeat this cleansing at least three times a day for the first two days and then once or twice a day. Bactroban Ointment Bactroban is very effective against the germs that cause infection within the skin. It's useful for impetigo and other superficial infections. Deeper infections require antibiotics by mouth or by shot. Apply the medicine three times a day for ten days, or longer if your doctor has advised it. Stop the medicine and call your doctor if you develop large blisters, severe itching, increasing pain, swelling, fever, or spreading redness. FOLLOW-UP CARE: If you have been referred to a physician for follow-up care, call the physician s office for an appointment as you were instructed or within the next two days. If you experience worsening or a significant change in your symptoms, notify the physician immediately or return to the Emergency Department at any time for re-evaluation. Prescriptions: Mupirocin [Bactroban 2% Ointment 22 gm] 1 applic TP TID #1 tube Sulfamethoxazole/Trimethoprim [Bactrim Ds Tablet] 1 each PO BID #20 tablet Forms: Elevated Blood Pressure, Smoking Cessation Education
[2018-03-19 00:47] VITALS: BP 122/76
== END 2018-03-19 00:54 | disposition home or self-care (01) ==
LOC: ER 23:06
DX: L73.9 Follicular disorder, unspecified (principal); E11.9 Type 2 diabetes mellitus without complications; F17.210 Nicotine dependence, cigarettes, uncomplicated; Z71.6 Tobacco abuse counseling; Z88.0 Allergy status to penicillin
CPT/HCPCS: 99406; 99282; J3490

== ENCOUNTER 2018-05-18 23:24 | Emergency (ER) | payer SELFPAY ==
[2018-05-18 23:32] VITALS: BP 149/79
[2018-05-19] MEDS ORDERED: SULFAMETHOXAZOLE/TRIMETHOPRIM 800-160 MG TABLET PO ONE (01:46)
[2018-05-19] MEDS ORDERED: CEPHALEXIN 500 MG CAPSULE PO ONE (01:46)
[2018-05-19] MEDS ORDERED: LIDOCAINE 1% INJ-PF (10 MG/ML) 30 ML SDV INJ ONE (01:46)
[2018-05-19] MEDS ORDERED: TRAMADOL HCL 50 MG TABLET PO ONE (01:46)
--- NOTE | 2018-05-19 01:49 | ER Document Report ---
ED Skin Rash/Insect Bite/Abscs - General Chief Complaint: Abscess Stated Complaint: ABSCESS Time Seen by Provider: 05/19/18 01:25 Notes: Patient is a 48-year-old female that comes to the emergency department for chief complaint of a tender swollen red area on her left buttock. This started approximately 1 day ago. She states she had 3 of them but she was able to pop 2 of them and they resolved. She states she was unable to pop this 1. She denies fever or chills, nausea or vomiting. She is a diabetic. TRAVEL OUTSIDE OF THE [place] IN LAST 30 DAYS: No - Related Data Allergies/Adverse Reactions: Penicillins Allergy (Verified 09/24/17 17:47) Past Medical History - General Information source: Patient - Social History Smoking Status: Current Every Day Smoker Chew tobacco use (# tins/day): No Frequency of alcohol use: None Drug Abuse: None Lives with: Family Family History: Arthritis, CAD, COPD, CVA, DM, Hyperlipidemia, Hypertension, Malignancy. denies: Thyroid Disfunction Patient has suicidal ideation: No Patient has homicidal ideation: No - Past Medical History Cardiac Medical History: Denies: Hx Coronary Artery Disease, Hx Heart Attack, Hx Hypertension Pulmonary Medical History: Reports: Hx Asthma - A CHILD, Hx Bronchitis, Hx Pneumonia Denies: Hx COPD Neurological Medical History: Denies: Hx Cerebrovascular Accident, Hx Seizures Endocrine Medical History: Reports: Hx Diabetes Mellitus Type 2 Renal/ Medical History: Denies: Hx Peritoneal Dialysis GI Medical History: Reports: Hx Gastroesophageal Reflux Disease Musculoskeletal Medical History: Reports Hx Arthritis - HANDS, Reports Hx Musculoskeletal Deformity - Carpal tunnel, Reports Hx Musculoskeletal Trauma Traumatic Medical History: Reports: Hx Fractures - Fifth toe left foot Past Surgical History: Reports: Hx Appendectomy, Hx Orthopedic Surgery - Carpal tunnel left - Immunizations Hx Diphtheria, Pertussis, Tetanus Vaccination: Yes Review of Systems - Review of Systems Constitutional: No symptoms reported EENT: No symptoms reported Cardiovascular: No symptoms reported Respiratory: No symptoms reported Gastrointestinal: No symptoms reported Genitourinary: No symptoms reported Female Genitourinary: No symptoms reported Musculoskeletal: No symptoms reported Skin: See HPI Hematologic/Lymphatic: No symptoms reported Neurological/Psychological: No symptoms reported Physical Exam - Vital signs Vitals: Temp Pulse Resp BP Pulse Ox 99.1 F 116 H 16 149/79 H 98 05/18/18 23:30 05/18/18 23:30 05/18/18 23:30 05/18/18 23:30 05/18/18 23:30 - Notes Notes: GENERAL: Alert, interacts well. No acute distress. HEAD: Normocephalic, atraumatic. EYES: Pupils equal, round, and reactive to light. Extraocular movements intact. ENT: Oral mucosa moist, tongue midline. Oropharynx unremarkable. Airway patent. Nares patent, no nasal septal hematoma, TM's intact. NECK: Full range of motion. Supple. Trachea midline. LUNGS: Clear to auscultation bilaterally, no wheezes, rales, or rhonchi. No respiratory distress. HEART: Regular rate and rhythm. No murmur ABDOMEN: Soft, non-tender. Non-distended. Bowel sounds present in all 4 quadrants. GENITOURINARY: Deferred EXTREMITIES: Moves all 4 extremities spontaneously. No edema, normal radial and dorsalis pedis pulses bilaterally. No cyanosis. BACK: no cervical, thoracic, lumbar midline tenderness. No saddle anesthesia, normal distal neurovascular exam. NEUROLOGICAL: Alert and oriented x3. Normal speech. [cranial nerves II through XII grossly intact]. PSYCH: Normal affect, normal mood. SKIN: Left mid lower buttock area with a fluctuant, indurated area with mild surrounding cellulitis. Cellulitis does not extend anywhere close to the perianal area. Perianal exam is normal. PRINCESS Serna present during examination. Course - Re-evaluation Re-evalutation: Tachycardia resolved on recheck. No fever. Patient has abscess on the left buttock with no evidence of extension to the perianal area. There is some mild surrounding cellulitis. Abscess drained, patient placed on antibiotics, discussed care of the abscess area, follow-up, and strict return precautions with patient and . They state understanding and agreement. - Vital Signs Vital signs: Temp Pulse Resp BP Pulse Ox 99.4 F 92 18 149/79 H 99 05/19/18 03:11 05/19/18 03:11 05/19/18 03:11 05/18/18 23:30 05/19/18 03:11 Procedures - Incision and Drainage Left buttock Type: Single Anesthetic type: 1% Lidocaine mL's of anesthetic: 7 Blade size: 11 I&D procedure: Shurclens applied, Sterile dressing applied Incision Method: Incision made by scalpel Amount/type of drainage: About 7 cc of purulent material expressed Discharge - Discharge Clinical Impression: Abscess Condition: Stable Disposition: HOME, SELF-CARE Additional Instructions: Your exam shows an abscess and surrounding cellulitis. Take antibiotics as prescribed to completion. Keep absorbing dressing of the area. Keep area clean, clean with soap and water. Follow-up with primary care referral listed. Return if you worsen including developing or spreading redness, fever, or any other concerning or worsening symptoms. Prescriptions: Cephalexin Monohydrate [Keflex 500 mg Capsule] 500 mg PO QID #28 capsule Sulfamethoxazole/Trimethoprim [Bactrim Ds Tablet] 1 each PO BID #14 tablet Forms: Return to Work, Treatment of Relative/Child Referrals: [facility] [Provider Group] - Follow up as needed
== END 2018-05-19 03:19 | disposition home or self-care (01) ==
LOC: ER 23:24
DX: L02.31 Cutaneous abscess of buttock (principal); F17.200 Nicotine dependence, unspecified, uncomplicated; E11.9 Type 2 diabetes mellitus without complications; Z88.0 Allergy status to penicillin
CPT/HCPCS: 99283; 10060; A6266; J3490

== ENCOUNTER 2019-01-27 05:35 | Emergency (ER) | payer SELFPAY ==
[2019-01-27] MEDS ORDERED: BUPIVACAINE HCL 0.25% /EPINEPHRINE INJ/PF 30 ML SDV INJ ONE (06:19)
--- NOTE | 2019-01-27 06:36 | ER Document Report ---
ED General - General Chief Complaint: Toothache Stated Complaint: POSSIBLE ABSCESS Time Seen by Provider: 01/27/19 06:01 Mode of Arrival: Ambulatory Information source: Patient TRAVEL OUTSIDE OF THE [place] IN LAST 30 DAYS: No - HPI Notes: Patient presents complaining of right lower molar tooth pain. She states this started 2 days ago. Has been constant and severe. It is worse with any type of movement. Nothing makes it better. It is radiating into her right face. It is a sharp sensation. She states that she has used a toothpick to poke around back there and has gotten pus and blood out of the area. No fevers. No vomiting or diarrhea. She has noted swelling of her right face. - Related Data Allergies/Adverse Reactions: Penicillins Allergy (Verified 09/24/17 17:47) Past Medical History - Social History Smoking Status: Current Every Day Smoker Chew tobacco use (# tins/day): No Frequency of alcohol use: None Drug Abuse: None Family History: Arthritis, CAD, COPD, CVA, DM, Hyperlipidemia, Hypertension, Malignancy. denies: Thyroid Disfunction Patient has suicidal ideation: No Patient has homicidal ideation: No - Past Medical History Cardiac Medical History: Denies: Hx Coronary Artery Disease, Hx Heart Attack, Hx Hypertension Pulmonary Medical History: Reports: Hx Asthma - A CHILD, Hx Bronchitis, Hx Pneumonia Denies: Hx COPD Neurological Medical History: Denies: Hx Cerebrovascular Accident, Hx Seizures Endocrine Medical History: Reports: Hx Diabetes Mellitus Type 2 Renal/ Medical History: Denies: Hx Peritoneal Dialysis GI Medical History: Reports: Hx Gastroesophageal Reflux Disease Musculoskeletal Medical History: Reports Hx Arthritis - HANDS, Reports Hx Musculoskeletal Deformity - Carpal tunnel, Reports Hx Musculoskeletal Trauma Traumatic Medical History: Reports: Hx Fractures - Fifth toe left foot Past Surgical History: Reports: Hx Appendectomy, Hx Orthopedic Surgery - Carpal tunnel left - Immunizations Hx Diphtheria, Pertussis, Tetanus Vaccination: Yes Review of Systems - Review of Systems Constitutional: denies: Chills, Fever EENT: denies: Eye pain, Eye discharge, Blurred vision Cardiovascular: denies: Chest pain, Syncope -: Yes All other systems reviewed and negative Physical Exam - Vital signs Vitals: Temp Pulse Resp BP Pulse Ox 97.7 F 91 14 140/68 H 99 01/27/19 05:37 01/27/19 05:37 01/27/19 05:37 01/27/19 05:37 01/27/19 05:37 Interpretation: Normal - General General appearance: Appears well, Alert - HEENT Head: Other - The right maxillary and mandibular area of the face have some slight swelling as compared to the left. She also has some adjacent submandibular induration on the right. Eyes: Normal Pupils: PERRL Mouth/Lips: Other - Patient has overall poor dentition. The area of tenderness is in the right posterior molar. There appears to be tooth #35. The adjacent gum is tender and swollen. There is no active extravasation of pus or blood. She does have surrounding gum friability and erythema in the area of 235 as well. She does not have any trismus. Mucous membranes: Moist - Respiratory Respiratory status: No respiratory distress Chest status: Nontender Breath sounds: Normal Chest palpation: Normal - Cardiovascular Rhythm: Regular Heart sounds: Normal auscultation Murmur: No - Abdominal Inspection: Normal Distension: No distension Bowel sounds: Normal Tenderness: Nontender Organomegaly: No organomegaly - Back Back: Normal, Nontender - Extremities General upper extremity: Normal inspection, Nontender, Normal color, Normal ROM, Normal temperature General lower extremity: Normal inspection, Nontender, Normal color, Normal ROM, Normal temperature, Normal weight bearing. No: Juan's sign - Neurological Neuro grossly intact: Yes Cognition: Normal Orientation: AAOx4 [place] Coma Scale Eye Opening: Spontaneous [place] Coma Scale Verbal: Oriented [place] Coma Scale Motor: Obeys Commands [place] Coma Scale Total: 15 Speech: Normal Motor strength normal: LUE, RUE, LLE, RLE Sensory: Normal - Psychological Associated symptoms: Normal affect, Normal mood - Skin Skin Temperature: Warm Skin Moisture: Dry Skin Color: Normal Course - Re-evaluation Re-evalutation: 01/27/19 06:33 I performed a right inferior alveolar block. I used 3 cc of Marcaine with epi. Patient tolerated the procedure well and there were no complications. A 27- gauge needle was used. She vocalizes good pain relief. Patient states she was draining pus from this area but there is no active pus now I do not appreciate an abscess that can be drained at this time. She does not have any trismus or appear toxic. It seems reasonable to have patient start antibiotics and follow-up with a dentist. 01/27/19 06:35 01/27/19 06:38 - Vital Signs Vital signs: Temp Pulse Resp BP Pulse Ox 97.7 F 91 14 140/68 H 99 01/27/19 05:37 01/27/19 05:37 01/27/19 05:37 01/27/19 05:37 01/27/19 05:37 Discharge - Discharge Clinical Impression: Dental abscess Condition: Stable Disposition: HOME, SELF-CARE Instructions: Toothache ([facility]), Oral Narcotic Medication ([facility]), Clindamycin ([facility]) Additional Instructions: Please make an appointment with a dentist as soon as possible Prescriptions: Clindamycin HCl [Cleocin HCl] 150 mg PO Q6 10 Days #40 capsule Oxycodone HCl/Acetaminophen [Percocet 5-325 mg Tablet] 1 - 2 tab PO Q4H PRN #15 tablet PRN Reason: Forms: Return to Work
[2019-01-27] MEDS ORDERED: CLINDAMYCIN HCL 150 MG CAPSULE PO ONE (06:39)
[2019-01-27 06:58] VITALS: BP 140/69
== END 2019-01-27 06:50 | disposition home or self-care (01) ==
LOC: ER 05:35
PROC: 3E0T3BZ Introduction of Anesthetic Agent into Peripheral Nerves and Plexi, Percutaneous Approach (ICD-10-PCS; principal; 2019-01-27)
PROC: 3E0T33Z Introduction of Anti-inflammatory into Peripheral Nerves and Plexi, Percutaneous Approach (ICD-10-PCS; 2019-01-27)
DX: F17.200 Nicotine dependence, unspecified, uncomplicated (principal); J45.909 Unspecified asthma, uncomplicated; E11.9 Type 2 diabetes mellitus without complications
CPT/HCPCS: 64400; J3490

== ENCOUNTER 2019-02-03 14:02 | Emergency (ER) | payer SELFPAY ==
--- NOTE | 2019-02-03 14:23 | ER Document Report ---
ED Medical Screen (RME) - General Chief Complaint: tremors Stated Complaint: SHAKES,NAUSEA,BACK PAIN Time Seen by Provider: 02/03/19 14:17 Mode of Arrival: Wheelchair Information source: Patient Notes: Patient presents emergency department with complaints of back pain tremors body aches that all started this morning at 05 100. Reports dental extraction last week she is taking clindamycin. Patient is a diabetic and reports her sugars have been high urinary frequency. Denies vomiting diarrhea. Has not checked her temperature. I have greeted and performed a rapid initial assessment of this patient. A comprehensive ED assessment and evaluation of the patient, analysis of test results and completion of the medical decision making process will be conducted by additional ED providers. Dictation of this chart was performed using voice recognition software; therefore, there may be some unintended grammatical errors. TRAVEL OUTSIDE OF THE [place] IN LAST 30 DAYS: No - Related Data Allergies/Adverse Reactions: Penicillins Allergy (Verified 09/24/17 17:47) Past Medical History - Social History Chew tobacco use (# tins/day): No Frequency of alcohol use: None Drug Abuse: None - Past Medical History Cardiac Medical History: Denies: Hx Coronary Artery Disease, Hx Heart Attack, Hx Hypertension Pulmonary Medical History: Reports: Hx Asthma - A CHILD, Hx Bronchitis, Hx Pneumonia Denies: Hx COPD Neurological Medical History: Denies: Hx Cerebrovascular Accident, Hx Seizures Endocrine Medical History: Reports: Hx Diabetes Mellitus Type 2 Renal/ Medical History: Denies: Hx Peritoneal Dialysis GI Medical History: Reports: Hx Gastroesophageal Reflux Disease Musculoskeltal Medical History: Reports Hx Arthritis - HANDS, Reports Hx Musculoskeletal Deformity - Carpal tunnel, Reports Hx Musculoskeletal Trauma Traumatic Medical History: Reports: Hx Fractures - Fifth toe left foot Past Surgical History: Reports: Hx Appendectomy, Hx Orthopedic Surgery - Carpal tunnel left - Immunizations Hx Diphtheria, Pertussis, Tetanus Vaccination: Yes Physical Exam - Vital signs Vitals: Temp Pulse Resp BP Pulse Ox 99.1 F 114 H 20 115/58 L 99 02/03/19 14:06 02/03/19 14:06 02/03/19 14:06 02/03/19 14:06 02/03/19 14:06 Course - Vital Signs Vital signs: Temp Pulse Resp BP Pulse Ox 99.1 F 114 H 20 115/58 L 99 02/03/19 14:06 02/03/19 14:06 02/03/19 14:06 02/03/19 14:06 02/03/19 14:06
[2019-02-03 14:54] LABS: VENOUS BLOOD BASE EXCESS -2.6 mmol/L; VENOUS BLOOD HCO3 19.5 mmol/L (20-32); VENOUS BLOOD PH 7.46 (7.30-7.42)
[2019-02-03 14:58] LABS: HEMATOCRIT 37.6 % (36.0-47.0); MEAN CORPUSCULAR HGB CONC 34.5 g/dL (32.0-36.0); MEAN CORPUSCULAR VOLUME 90 fl (80-97); PLATELET COUNT 264 10^3/uL (150-450); RED CELL DISTRIBUTION WIDTH 13.1 % (11.5-14.0); WHITE BLOOD COUNT 10.1 10^3/uL (4.0-10.5)
[2019-02-03 14:59] LABS: APPEARANCE,URINE CLOUDY; BILIRUBIN,URINE NEGATIVE (NEGATIVE); COLOR,URINE YELLOW; GLUCOSE, URINE >=500 mg/dL (NEGATIVE); KETONES,URINE 20 mg/dL (NEGATIVE); LEUKOCYTE ESTERASE,URINE LARGE (NEGATIVE); NITRITE,URINE NEGATIVE (NEGATIVE); PROTEIN,URINE 30 mg/dL (NEGATIVE); URINE SPECIFIC GRAVITY 1.022; UROBILINOGEN,URINE NEGATIVE mg/dL (<2.0)
[2019-02-03 15:17] LABS: ALBUMIN 3.6 g/dL (3.5-5.0); ALKALINE PHOSPHATASE 111 U/L (38-126); ANION GAP 9 (5-19); ASPARTATE AMINO TRANSFERASE 43 U/L (14-36); BILIRUBIN,DIRECT 0.3 mg/dL (0.0-0.4); BILIRUBIN,TOTAL 1.3 mg/dL (0.2-1.3); BLOOD UREA NITROGEN 10 mg/dL (7-20); CALCIUM 8.9 mg/dL (8.4-10.2); CARBON DIOXIDE 22 mmol/L (22-30); CHLORIDE 98 mmol/L (98-107); GLUCOSE 224 mg/dL (75-110); POTASSIUM 4.1 mmol/L (3.6-5.0); TOTAL PROTEIN 6.2 g/dL (6.3-8.2)
[2019-02-03 15:33] LABS: ABSOLUTE LYMPHOCYTES# (MANUAL) 0.1 10^3/uL (0.5-4.7); ABSOLUTE MONOCYTES # (MANUAL) 0.2 10^3/uL (0.1-1.4); BASOPHILS % (MANUAL) 0 % (0-2); EOSINOPHILS % (MANUAL) 0 % (0-6); LYMPHOCYTES % (MANUAL) 1 % (13-45); MONOCYTES % (MANUAL) 2 % (3-13); PLATELET COMMENT ADEQUATE; RBC MORPHOLOGY COMMENT NORMO-CYTIC/CHROMIC; SEGMENTED NEUTROPHILS % (MAN) 97 % (42-78); TOTAL CELLS COUNTED 100; TOXIC GRANULATION SLIGHT; TOXIC VACUOLATION PRESENT
[2019-02-03 16:38] LABS: A TYPE INFLUENZA AG NEGATIVE (NEGATIVE); B INFLUENZA AG NEGATIVE (NEGATIVE)
[2019-02-03] MEDS ORDERED: CEPHALEXIN 500 MG CAPSULE PO ONE (18:45)
--- NOTE | 2019-02-03 18:46 | ER Document Report ---
ED General - General Chief Complaint: tremors Stated Complaint: SHAKES,NAUSEA,BACK PAIN Time Seen by Provider: 02/03/19 14:17 Mode of Arrival: Wheelchair TRAVEL OUTSIDE OF THE [place] IN LAST 30 DAYS: No - HPI Notes: Patient presents with onset of feeling hot and cold and intermittent chills with lower back pain that started this morning. She had to teeth extractions Friday of last week and was placed on 10 days of clindamycin. She also has been having a scratchy throat and nonproductive cough that she is a daily smoker. Denies any vomiting or diarrhea abdominal pain chest pain or shortness of breath. - Related Data Allergies/Adverse Reactions: Penicillins Allergy (Verified 09/24/17 17:47) Past Medical History - General Information source: Patient - Social History Smoking Status: Current Every Day Smoker Chew tobacco use (# tins/day): No Frequency of alcohol use: None Drug Abuse: None Family History: Arthritis, CAD, COPD, CVA, DM, Hyperlipidemia, Hypertension, Malignancy. denies: Thyroid Disfunction Patient has suicidal ideation: No Patient has homicidal ideation: No - Past Medical History Cardiac Medical History: Denies: Hx Coronary Artery Disease, Hx Heart Attack, Hx Hypertension Pulmonary Medical History: Reports: Hx Asthma - A CHILD, Hx Bronchitis, Hx Pneumonia Denies: Hx COPD Neurological Medical History: Denies: Hx Cerebrovascular Accident, Hx Seizures Endocrine Medical History: Reports: Hx Diabetes Mellitus Type 2 Renal/ Medical History: Denies: Hx Peritoneal Dialysis GI Medical History: Reports: Hx Gastroesophageal Reflux Disease Musculoskeletal Medical History: Reports Hx Arthritis - HANDS, Reports Hx Musculoskeletal Deformity - Carpal tunnel, Reports Hx Musculoskeletal Trauma Traumatic Medical History: Reports: Hx Fractures - Fifth toe left foot Past Surgical History: Reports: Hx Appendectomy, Hx Orthopedic Surgery - Carpal tunnel left - Immunizations Hx Diphtheria, Pertussis, Tetanus Vaccination: Yes Review of Systems - Review of Systems Constitutional: Diaphoresis EENT: See HPI Cardiovascular: No symptoms reported Respiratory: No symptoms reported Gastrointestinal: No symptoms reported Genitourinary: See HPI Female Genitourinary: No symptoms reported Musculoskeletal: No symptoms reported Skin: No symptoms reported Hematologic/Lymphatic: No symptoms reported Neurological/Psychological: No symptoms reported Physical Exam - Vital signs Vitals: Temp Pulse Resp BP Pulse Ox 99.1 F 114 H 20 115/58 L 99 02/03/19 14:06 02/03/19 14:06 02/03/19 14:06 02/03/19 14:06 02/03/19 14:06 - General General appearance: Appears well, Alert - HEENT Head: Normocephalic, Atraumatic Eyes: Normal Conjunctiva: Normal Cornea: Normal Extraocular movements intact: Yes Pupils: PERRL Nasal: Normal Mouth/Lips: Normal Mucous membranes: Normal, Other - Well-appearing tooth extraction areas with no signs of gingival abscess, no warmth or purulence - Respiratory Respiratory status: No respiratory distress Chest status: Nontender Breath sounds: Normal Chest palpation: Normal - Cardiovascular Rhythm: Regular Heart sounds: Normal auscultation Murmur: No - Abdominal Inspection: Normal Distension: No distension Bowel sounds: Normal Tenderness: Nontender - Back Back: Normal. No: CVA tenderness - Extremities General upper extremity: Normal inspection, Normal ROM General lower extremity: Normal inspection, Normal ROM - Neurological Neuro grossly intact: Yes Cognition: Normal Orientation: AAOx4 - Psychological Associated symptoms: Normal affect Course - Re-evaluation Re-evalutation: 02/03/19 18:44 Ill-appearing patient in no acute distress with benign exam. She does show signs of urinary tract infection as well as burning with urination. Will provide 7 days of Keflex. Return precautions provided. Discussed she should continue taking clindamycin as she has 2 days left. Urine sent for culture - Vital Signs Vital signs: Temp Pulse Resp BP Pulse Ox 98.8 F 76 16 106/58 L 100 02/03/19 19:07 02/03/19 19:07 02/03/19 19:07 02/03/19 19:07 02/03/19 19:07 - Laboratory Result Diagrams: 02/03/19 14:35 02/03/19 14:35 Laboratory results interpreted by me: 02/03/19 02/03/19 02/03/19 14:32 14:35 14:35 Seg Neuts % (Manual) 97 H Lymphocytes % (Manual) 1 L Monocytes % (Manual) 2 L Abs Neuts (Manual) 9.8 H Abs Lymphs (Manual) 0.1 L VBG pH 7.46 H VBG pCO2 28.0 L VBG HCO3 19.5 L Sodium 129.2 L Creatinine 0.44 L Glucose 224 H AST 43 H Total Protein 6.2 L Urine Protein Urine Glucose (UA) Urine Ketones Urine Blood Ur Leukocyte Esterase 02/03/19 14:35 Seg Neuts % (Manual) Lymphocytes % (Manual) Monocytes % (Manual) Abs Neuts (Manual) Abs Lymphs (Manual) VBG pH VBG pCO2 VBG HCO3 Sodium Creatinine Glucose AST Total Protein Urine Protein 30 H Urine Glucose (UA) >=500 H Urine Ketones 20 H Urine Blood SMALL H Ur Leukocyte Esterase LARGE H Discharge - Discharge Clinical Impression: UTI (urinary tract infection) Qualifiers: Urinary tract infection type: site unspecified Hematuria presence: with hematuria Qualified Code(s): N39.0 - Urinary tract infection, site not specified; R31.9 - Hematuria, unspecified Condition: Good Disposition: HOME, SELF-CARE Instructions: Urinary Tract Infection ([facility]) Additional Instructions: These take all medications as prescribed and seek medical reevaluation if your symptoms are not improving or any other concerns. Prescriptions: Cephalexin Monohydrate [Keflex 500 mg Capsule] 500 mg PO Q6H 5 Days capsule
[2019-02-03 19:09] VITALS: BP 106/58
== END 2019-02-03 19:10 | disposition home or self-care (01) ==
LOC: ER 14:02
DX: N39.0 Urinary tract infection, site not specified (principal); R31.9 Hematuria, unspecified; R25.1 Tremor, unspecified; M54.5 Low back pain; R05 Cough; R11.0 Nausea; F17.200 Nicotine dependence, unspecified, uncomplicated; J45.909 Unspecified asthma, uncomplicated; E11.9 Type 2 diabetes mellitus without complications
CPT/HCPCS: 36415; 80053; 81001; 82803; 85025; 87086; 87088; 87186; 87804; 99283

== ENCOUNTER 2019-03-04 17:50 | Emergency (ER) | payer SELFPAY ==
--- NOTE | 2019-03-04 18:23 | ER Document Report ---
ED Medical Screen (RME) - General Chief Complaint: Chest Pain Stated Complaint: RIGHT ARM PAIN, FEET/LEG SWELLING Time Seen by Provider: 03/04/19 18:17 Mode of Arrival: Ambulatory Information source: Patient Notes: 49-year-old female presents to ED for chest heaviness pressure short of breath bilateral pedal edema pain in the right leg and arm for the last few days may be a week. Patient states her father had a massive heart attack but she does not have any heart history. She does smoke but is not any history of long trips or blood clots. She states she went to her doctor on the and he changed a lot of her medicines. Is diabetic and on multiple medications for the diabetes. She also has a history of narcolepsy. She also has a history of GERD. I have greeted and performed a rapid initial assessment of this patient. A comprehensive ED assessment and evaluation of the patient, analysis of test results and completion of medical decision making process will be conducted by an additional ED providers. TRAVEL OUTSIDE OF THE [place] IN LAST 30 DAYS: No - Related Data Allergies/Adverse Reactions: Penicillins Allergy (Verified 09/24/17 17:47) Past Medical History - Past Medical History Cardiac Medical History: Denies: Hx Coronary Artery Disease, Hx Heart Attack, Hx Hypertension Pulmonary Medical History: Reports: Hx Asthma - A CHILD, Hx Bronchitis, Hx Pneumonia Denies: Hx COPD Neurological Medical History: Denies: Hx Cerebrovascular Accident, Hx Seizures Endocrine Medical History: Reports: Hx Diabetes Mellitus Type 2 Renal/ Medical History: Denies: Hx Peritoneal Dialysis GI Medical History: Reports: Hx Gastroesophageal Reflux Disease Musculoskeltal Medical History: Reports Hx Arthritis - HANDS, Reports Hx Musculoskeletal Deformity - Carpal tunnel, Reports Hx Musculoskeletal Trauma Traumatic Medical History: Reports: Hx Fractures - Fifth toe left foot Past Surgical History: Reports: Hx Appendectomy, Hx Orthopedic Surgery - Carpal tunnel left - Immunizations Hx Diphtheria, Pertussis, Tetanus Vaccination: Yes Physical Exam - Vital signs Vitals: Temp Pulse Resp BP Pulse Ox 98.4 F 90 16 153/77 H 100 03/04/19 18:00 03/04/19 18:00 03/04/19 18:00 03/04/19 18:00 03/04/19 18:00 Course - Vital Signs Vital signs: Temp Pulse Resp BP Pulse Ox 98.4 F 90 16 153/77 H 100 03/04/19 18:00 03/04/19 18:00 03/04/19 18:00 03/04/19 18:00 03/04/19 18:00
--- NOTE | 2019-03-04 18:57 | RADIOLOGY REPORT (SQ) ---
EXAM DESCRIPTION: CHEST 2 VIEWS COMPLETED DATE/TIME: 03/04/2019 6:45 pm REASON FOR STUDY: chest pain heaviness COMPARISON: None. EXAM PARAMETERS: NUMBER OF VIEWS: two views TECHNIQUE: Digital Frontal and Lateral radiographic views of the chest acquired. RADIATION DOSE: NA LIMITATIONS: none FINDINGS: LUNGS AND PLEURA: No consolidation, pleural effusion or pneumothorax. MEDIASTINUM AND HILAR STRUCTURES: No mediastinal or hilar contour abnormality. HEART AND VASCULAR STRUCTURES: The cardiac silhouette and pulmonary vasculature are within normal nash its. BONES: No acute findings. HARDWARE: None. OTHER: No other finding. IMPRESSION: No acute cardiopulmonary process. TECHNICAL DOCUMENTATION: JOB ID: [id number] [employer]- All Rights Reserved Reading location - IP/workstation name: [email or web address]
[2019-03-04 19:44] LABS: VENOUS BLOOD BASE EXCESS -1.6 mmol/L; VENOUS BLOOD HCO3 25.3 mmol/L (20-32); VENOUS BLOOD PCO2 51.8 mmHg (35-63); VENOUS BLOOD PH 7.31 (7.30-7.42)
[2019-03-04 19:48] LABS: ABSOLUTE EOSINOPHILS # (AUTO) 0.1 10^3/uL (0.0-0.6); ABSOLUTE LYMPHOCYTES (AUTO) 1.8 10^3/uL (0.5-4.7); ABSOLUTE MONOCYTES (AUTO) 0.5 10^3/uL (0.1-1.4); ABSOLUTE NEUT (AUTO) 6.4 10^3/uL (1.7-8.2); BASOPHILS % (AUTO) 0.5 % (0-2); EOSINOPHILS % (AUTO) 1.1 % (0-6); HEMATOCRIT 35.6 % (36.0-47.0); HEMOGLOBIN 11.9 g/dL (12.0-15.5); MEAN CORPUSCULAR HEMOGLOBIN 31.1 pg (27.0-33.4); MEAN CORPUSCULAR HGB CONC 33.5 g/dL (32.0-36.0); MEAN CORPUSCULAR VOLUME 93 fl (80-97); PLATELET COUNT 245 10^3/uL (150-450); RED BLOOD COUNT 3.83 10^6/uL (3.72-5.28); SEGMENTED NEUTROPHILS % (AUTO) 72.4 % (42-78); TOTAL CELLS COUNTED % (AUTO) 100 %; WHITE BLOOD COUNT 8.8 10^3/uL (4.0-10.5)
[2019-03-04 19:51] LABS: INTERNATIONAL RATION (INR) 1.01; PROTHROMBIN TIME 13.3 SEC (11.4-15.4)
[2019-03-04 19:52] LABS: PARTIAL THROMBOPLASTIN TIME 27.1 SEC (23.5-35.8)
[2019-03-04 20:04] LABS: ALBUMIN 3.5 g/dL (3.5-5.0); ALKALINE PHOSPHATASE 66 U/L (38-126); ANION GAP 8 (5-19); ASPARTATE AMINO TRANSFERASE 20 U/L (14-36); BILIRUBIN,DIRECT 0.1 mg/dL (0.0-0.4); BILIRUBIN,TOTAL 0.3 mg/dL (0.2-1.3); BLOOD UREA NITROGEN 10 mg/dL (7-20); CALCIUM 9.2 mg/dL (8.4-10.2); CARBON DIOXIDE 25 mmol/L (22-30); CHLORIDE 109 mmol/L (98-107); CREATINE KINASE 44 U/L (30-135); GLUCOSE 157 mg/dL (75-110); TOTAL PROTEIN 5.9 g/dL (6.3-8.2)
[2019-03-04 20:15] LABS: CREATINE KINASE MB 1.08 ng/mL (<4.55)
[2019-03-04 20:16] LABS: NT PRO BNP 163 pg/mL (<125); TROPONIN I < 0.012 ng/mL
--- NOTE | 2019-03-04 20:18 | EKG REPORT ---
SEVERITY:- NORMAL ECG - SINUS RHYTHM : Confirmed by: Irene Galvan MD 04-Mar-2019 20:17:45
[2019-03-04 23:03] LABS: APPEARANCE,URINE SLIGHTLY-CLOUDY; BILIRUBIN,URINE NEGATIVE (NEGATIVE); COLOR,URINE YELLOW; GLUCOSE, URINE 150 mg/dL (NEGATIVE); KETONES,URINE NEGATIVE (NEGATIVE); LEUKOCYTE ESTERASE,URINE LARGE (NEGATIVE); NITRITE,URINE NEGATIVE (NEGATIVE); PROTEIN,URINE NEGATIVE (NEGATIVE); UROBILINOGEN,URINE NEGATIVE mg/dL (<2.0)
[2019-03-05 01:03] VITALS: BP 133/79
--- NOTE | 2019-03-05 01:05 | ER Document Report ---
ED General - General Chief Complaint: Chest Pain Stated Complaint: RIGHT ARM PAIN, FEET/LEG SWELLING Time Seen by Provider: 03/04/19 18:17 Mode of Arrival: Ambulatory Notes: Patient is a 49-year-old female that comes emergency department for a variety of complaints. She states she has had a cough for a while and intermittently has productive cough and shortness of breath along with chest discomfort, she states she is concerned she might have pneumonia. She also states her right arm has been aching and she wonders if this is related. She also states that she has been swelling in her legs on both sides equally for the past few days and she has not had this previously. She denies history of CHF, past medical history of smoking, type 2 diabetes, GERD, narcolepsy. She denies any cardiac history. She does have positive family history of [place] with her father. TRAVEL OUTSIDE OF THE [place] IN LAST 30 DAYS: No - Related Data Allergies/Adverse Reactions: Penicillins Allergy (Verified 09/24/17 17:47) Past Medical History - General Information source: Patient - Social History Smoking Status: Current Some Day Smoker Chew tobacco use (# tins/day): No Frequency of alcohol use: Rare Drug Abuse: None Lives with: Family Family History: Arthritis, CAD, COPD, CVA, DM, Hyperlipidemia, Hypertension, Malignancy. denies: Thyroid Disfunction Patient has suicidal ideation: No Patient has homicidal ideation: No - Past Medical History Cardiac Medical History: Denies: Hx Coronary Artery Disease, Hx Heart Attack, Hx Hypertension Pulmonary Medical History: Reports: Hx Asthma - A CHILD, Hx Bronchitis, Hx Pneumonia Denies: Hx COPD Neurological Medical History: Denies: Hx Cerebrovascular Accident, Hx Seizures Endocrine Medical History: Reports: Hx Diabetes Mellitus Type 2 Renal/ Medical History: Denies: Hx Peritoneal Dialysis GI Medical History: Reports: Hx Gastroesophageal Reflux Disease Musculoskeletal Medical History: Reports Hx Arthritis - HANDS, Reports Hx Muscul oskeletal Deformity - Carpal tunnel, Reports Hx Musculoskeletal Trauma Traumatic Medical History: Reports: Hx Fractures - Fifth toe left foot Past Surgical History: Reports: Hx Appendectomy, Hx Orthopedic Surgery - Carpal tunnel left - Immunizations Hx Diphtheria, Pertussis, Tetanus Vaccination: Yes Review of Systems - Review of Systems Constitutional: No symptoms reported EENT: No symptoms reported Cardiovascular: See HPI Respiratory: See HPI Gastrointestinal: No symptoms reported Genitourinary: No symptoms reported Female Genitourinary: No symptoms reported Musculoskeletal: See HPI Skin: No symptoms reported Hematologic/Lymphatic: No symptoms reported Neurological/Psychological: No symptoms reported Physical Exam - Vital signs Vitals: Temp Pulse Resp BP Pulse Ox 98.4 F 90 16 153/77 H 100 03/04/19 18:00 03/04/19 18:00 03/04/19 18:00 03/04/19 18:00 03/04/19 18:00 - Notes Notes: GENERAL: Alert, interacts well. No acute distress. HEAD: Normocephalic, atraumatic. EYES: Pupils equal, round, and reactive to light. Extraocular movements intact. ENT: Oral mucosa moist, tongue midline. Oropharynx unremarkable. Airway patent. NECK: Full range of motion. Supple. Trachea midline. LUNGS: Clear to auscultation bilaterally, no wheezes, rales, or rhonchi. No respiratory distress. HEART: Regular rate and rhythm. No murmur ABDOMEN: Soft, non-tender. Non-distended. Bowel sounds present in all 4 quadrants. GENITOURINARY: Deferred EXTREMITIES: Moves all 4 extremities spontaneously. Bilateral lower extremity edema (1+ pitting) normal radial and dorsalis pedis pulses bilaterally. No cyanosis. BACK: no cervical, thoracic, lumbar midline tenderness. No saddle anesthesia, normal distal neurovascular exam. Moves all extremities in full range of motion. NEUROLOGICAL: Alert and oriented x3. Normal speech. Cranial nerves II through XII grossly intact. PSYCH: Normal affect, normal mood. SKIN: Warm, dry, normal turgor. No rashes or lesions noted. Course - Re-evaluation Re-evalutation: EKG unremarkable, troponin negative, BNP not elevated, chest x-ray unremarkable. Patient has muscular skeletal pain of the right arm which is reproducible on palpation and portably ongoing for the patient. There is no neurological deficit. No current chest pain, no shortness of breath, pain is with cough and this is been going on for a while and resolving. Patient does have bilateral lower extremity edema. I suspect venous insufficiency based on her work-up. Second troponin negative. Discussed with patient at length. She is mainly concerned with her lower extremity swelling because this is new, she will be placed on a small amount of diuresis, she has very close primary care follow-up, I discussed remaining work- up in detail, her respiratory/chest symptoms are almost completely resolved. Discussed strict return precautions in detail, patient states appreciation and agreement. Stable at time of discharge. - Vital Signs Vital signs: Temp Pulse Resp BP Pulse Ox 98.4 F 90 21 H 133/79 H 98 03/04/19 18:00 03/04/19 18:00 03/05/19 01:00 03/05/19 00:01 03/05/19 01:00 - Laboratory Result Diagrams: 03/04/19 19:28 03/04/19 19:28 Laboratory results interpreted by me: 03/04/19 03/04/19 03/04/19 19:28 19:28 19:28 Hgb 11.9 L Hct 35.6 L Chloride 109 H Glucose 157 H NT-Pro-B Natriuret Pep 163 H Total Protein 5.9 L Urine Glucose (UA) Ur Leukocyte Esterase 03/04/19 22:47 Hgb Hct Chloride Glucose NT-Pro-B Natriuret Pep Total Protein Urine Glucose (UA) 150 H Ur Leukocyte Esterase LARGE H Discharge - Discharge Clinical Impression: Swelling of both lower extremities, Right arm pain, Cough, Chest discomfort Condition: Stable Disposition: HOME, SELF-CARE Additional Instructions: Your work-up is reassuring including EKG, chest x-ray, laboratory studies. Your evaluation is most consistent with venous insufficiency causing swelling of your lower extremities. I recommend the diuretic and the potassium to avoid low potassium while taking this as prescribed. Use the compression stockings, elevate your legs when possible, this should resolve. Follow-up with primary care for additional management. Return for any concerning or worsening symptoms including difficulty breathing, fevers, increased swelling, or any other concerning or worsening symptoms. Prescriptions: Furosemide [Lasix 20 mg Tablet] 20 mg PO QAM #7 tablet Potassium Chloride 10 meq PO DAILY #7 tablet.er Forms: Smoking Cessation Education
== END 2019-03-05 01:44 | disposition home or self-care (01) ==
LOC: ER 17:50
DX: R07.9 Chest pain, unspecified (principal); M79.601 Pain in right arm; M79.89 Other specified soft tissue disorders; R06.02 Shortness of breath; R05 Cough; E11.9 Type 2 diabetes mellitus without complications; Z88.0 Allergy status to penicillin
CPT/HCPCS: 36415; 71046; 80053; 81001; 82550; 82553; 82803; 83735; 83880; 84443; 84484; 84703; 85025; 85610; 85730; 93005; 93010; 99284

== ENCOUNTER 2019-04-05 10:58 | Emergency (ER) | payer SELFPAY ==
[2019-04-05 11:04] VITALS: BP 156/81
--- NOTE | 2019-04-05 11:21 | ER Document Report ---
ED Medical Screen (RME) - General Chief Complaint: Abscess Stated Complaint: ABSCESS/LEFT PELVIC AREA Time Seen by Provider: 04/05/19 11:19 Mode of Arrival: Ambulatory Information source: Patient Notes: 49-year-old female presents to ED for an abscess to the left lower abdomen. It is red swollen and inflamed. She states that it has been present and growing since morning. Had one in August. She did not know if she has any history of MRSA. She states she does keep getting a staph infection on her head. Dates she does smoke no alcohol or drugs. Does have diabetes 2 and narcolepsy. Is alert oriented respirations regular nonlabored speaking in full sentences. I have greeted and performed a rapid initial assessment of this patient. A comprehensive ED assessment and evaluation of the patient, analysis of test results and completion of medical decision making process will be conducted by an additional ED providers. TRAVEL OUTSIDE OF THE [place] IN LAST 30 DAYS: No - Related Data Allergies/Adverse Reactions: Penicillins Allergy (Verified 09/24/17 17:47) Past Medical History - Past Medical History Cardiac Medical History: Denies: Hx Coronary Artery Disease, Hx Heart Attack, Hx Hypertension Pulmonary Medical History: Reports: Hx Asthma - A CHILD, Hx Bronchitis, Hx Pneumonia Denies: Hx COPD Neurological Medical History: Denies: Hx Cerebrovascular Accident, Hx Seizures Endocrine Medical History: Reports: Hx Diabetes Mellitus Type 2 Renal/ Medical History: Denies: Hx Peritoneal Dialysis GI Medical History: Reports: Hx Gastroesophageal Reflux Disease Musculoskeltal Medical History: Reports Hx Arthritis - HANDS, Reports Hx Musculoskeletal Deformity - Carpal tunnel, Reports Hx Musculoskeletal Trauma Traumatic Medical History: Reports: Hx Fractures - Fifth toe left foot Past Surgical History: Reports: Hx Appendectomy, Hx Orthopedic Surgery - Carpal tunnel left - Immunizations Hx Diphtheria, Pertussis, Tetanus Vaccination: Yes Physical Exam - Vital signs Vitals: Temp Pulse Resp BP Pulse Ox 97.6 F 101 H 20 156/81 H 98 04/05/19 11:03 04/05/19 11:03 04/05/19 11:03 04/05/19 11:03 04/05/19 11:03 Course - Vital Signs Vital signs: Temp Pulse Resp BP Pulse Ox 97.6 F 101 H 20 156/81 H 98 04/05/19 11:03 04/05/19 11:03 04/05/19 11:03 04/05/19 11:03 04/05/19 11:03
[2019-04-05 11:55] LABS: ABSOLUTE EOSINOPHILS # (AUTO) 0.1 10^3/uL (0.0-0.6); ABSOLUTE LYMPHOCYTES (AUTO) 2.2 10^3/uL (0.5-4.7); ABSOLUTE MONOCYTES (AUTO) 0.6 10^3/uL (0.1-1.4); ABSOLUTE NEUT (AUTO) 6.2 10^3/uL (1.7-8.2); APPEARANCE,URINE CLEAR; BASOPHILS % (AUTO) 0.4 % (0-2); BILIRUBIN,URINE NEGATIVE (NEGATIVE); COLOR,URINE STRAW; GLUCOSE, URINE 50 mg/dL (NEGATIVE); HEMATOCRIT 41.5 % (36.0-47.0); HEMOGLOBIN 13.8 g/dL (12.0-15.5); KETONES,URINE NEGATIVE (NEGATIVE); LYMPHOCYTES % (AUTO) 24.2 % (13-45); MEAN CORPUSCULAR HEMOGLOBIN 31.1 pg (27.0-33.4); MEAN CORPUSCULAR HGB CONC 33.4 g/dL (32.0-36.0); MEAN CORPUSCULAR VOLUME 93 fl (80-97); PLATELET COUNT 306 10^3/uL (150-450); PROTEIN,URINE NEGATIVE (NEGATIVE); RED BLOOD COUNT 4.45 10^6/uL (3.72-5.28); RED CELL DISTRIBUTION WIDTH 13.7 % (11.5-14.0); SEGMENTED NEUTROPHILS % (AUTO) 68.4 % (42-78); TOTAL CELLS COUNTED % (AUTO) 100 %; URINE SPECIFIC GRAVITY 1.002; UROBILINOGEN,URINE NEGATIVE mg/dL (<2.0); WHITE BLOOD COUNT 9.1 10^3/uL (4.0-10.5)
[2019-04-05 12:15] LABS: ALBUMIN 4.2 g/dL (3.5-5.0); ALKALINE PHOSPHATASE 75 U/L (38-126); ANION GAP 12 (5-19); ASPARTATE AMINO TRANSFERASE 15 U/L (14-36); BILIRUBIN,DIRECT 0.1 mg/dL (0.0-0.4); BILIRUBIN,TOTAL 0.7 mg/dL (0.2-1.3); BLOOD UREA NITROGEN 7 mg/dL (7-20); CALCIUM 10.1 mg/dL (8.4-10.2); CARBON DIOXIDE 26 mmol/L (22-30); CHLORIDE 105 mmol/L (98-107); GLUCOSE 174 mg/dL (75-110); POTASSIUM 4.4 mmol/L (3.6-5.0); TOTAL PROTEIN 7.2 g/dL (6.3-8.2)
[2019-04-05] MEDS ORDERED: LIDOCAINE 1%/EPINEPHRINE INJ 20 ML VIAL ONE (13:38)
--- NOTE | 2019-04-05 14:27 | ER Document Report ---
ED General - General Chief Complaint: Abscess Stated Complaint: ABSCESS/LEFT PELVIC AREA Time Seen by Provider: 04/05/19 11:19 Mode of Arrival: Ambulatory Information source: Patient TRAVEL OUTSIDE OF THE [place] IN LAST 30 DAYS: No - HPI Notes: Patient has pain in the left lateral mons pubis. This is been present for approximately 2 to 3 days. She has noticed that it has been red and tender to touch. She states she has had one previous abscess that was on the rectal area. She denies any fevers. No vomiting or diarrhea. She states the area is worse when touched and better if left alone. It is been moderate in intensity. It is a sharp sensation. It does radiate into her left leg. She does not appreciate any significant drainage. She does not know of any injuries or wounds to this area. No previous history of MRSA. - Related Data Allergies/Adverse Reactions: Penicillins Allergy (Verified 09/24/17 17:47) Home Medications: Lantus, Glipiride, Adderral Past Medical History - General Information source: Patient - Social History Smoking Status: Current Every Day Smoker Frequency of alcohol use: None Drug Abuse: None Family History: Arthritis, CAD, COPD, CVA, DM, Hyperlipidemia, Hypertension, Malignancy. denies: Thyroid Disfunction Patient has suicidal ideation: No Patient has homicidal ideation: No - Past Medical History Cardiac Medical History: Denies: Hx Coronary Artery Disease, Hx Heart Attack, Hx Hypertension Pulmonary Medical History: Reports: Hx Asthma - A CHILD, Hx Bronchitis, Hx Pneumonia Denies: Hx COPD Neurological Medical History: Denies: Hx Cerebrovascular Accident, Hx Seizures Endocrine Medical History: Reports: Hx Diabetes Mellitus Type 2 Renal/ Medical History: Denies: Hx Peritoneal Dialysis GI Medical History: Reports: Hx Gastroesophageal Reflux Disease Musculoskeletal Medical History: Reports Hx Arthritis - HANDS, Reports Hx Musculoskeletal Deformity - Carpal tunnel, Reports Hx Musculoskeletal Trauma Traumatic Medical History: Reports: Hx Fractures - Fifth toe left foot Past Surgical History: Reports: Hx Appendectomy, Hx Orthopedic Surgery - Carpal tunnel left - Immunizations Hx Diphtheria, Pertussis, Tetanus Vaccination: Yes Review of Systems - Review of Systems Constitutional: denies: Chills, Fever Cardiovascular: denies: Chest pain, Palpitations Respiratory: denies: Cough, Short of breath -: Yes All other systems reviewed and negative Physical Exam - Vital signs Vitals: Temp Pulse Resp BP Pulse Ox 97.6 F 101 H 20 156/81 H 98 04/05/19 11:03 04/05/19 11:03 04/05/19 11:03 04/05/19 11:03 04/05/19 11:03 Interpretation: Hypertensive - General General appearance: Appears well, Alert - HEENT Head: Normocephalic, Atraumatic Eyes: Normal Pupils: PERRL - Respiratory Respiratory status: No respiratory distress Chest status: Nontender Breath sounds: Normal Chest palpation: Normal - Cardiovascular Rhythm: Regular Heart sounds: Normal auscultation Murmur: No - Abdominal Inspection: Normal Distension: No distension Bowel sounds: Normal Tenderness: Nontender Organomegaly: No organomegaly - Back Back: Normal, Nontender - Extremities General upper extremity: Normal inspection, Nontender, Normal color, Normal ROM, Normal temperature General lower extremity: Normal inspection, Nontender, Normal color, Normal ROM, Normal temperature, Normal weight bearing. No: Juan's sign - Neurological Neuro grossly intact: Yes Cognition: Normal Orientation: AAOx4 [place] Coma Scale Eye Opening: Spontaneous [place] Coma Scale Verbal: Oriented [place] Coma Scale Motor: Obeys Commands Indian Coma Scale Total: 15 Speech: Normal Motor strength normal: LUE, RUE, LLE, RLE Sensory: Normal - Psychological Associated symptoms: Normal affect, Normal mood - Skin Skin Temperature: Warm Skin Moisture: Dry Skin Color: Other - Skin exam is unremarkable other than the left lateral mons pubis area. This area has an indurated tender fluctuant area consistent with abscess. There is an adherent scab over the area. No active drainage. Course - Re-evaluation Re-evalutation: 04/05/19 14:23 Patient has an abscess that was incised and drained as well as packed in the emergency room. She will return in approximately 48 hours for a recheck. There is no evidence of systemic infection. - Vital Signs Vital signs: Temp Pulse Resp BP Pulse Ox 97.6 F 101 H 20 156/81 H 98 04/05/19 11:03 04/05/19 11:03 04/05/19 11:03 04/05/19 11:03 04/05/19 11:03 - Laboratory Result Diagrams: 04/05/19 11:37 04/05/19 11:37 Laboratory results interpreted by me: 04/05/19 04/05/19 11:37 11:37 Glucose 174 H Urine Glucose (UA) 50 H Urine Blood MODERATE H Leukocyte Esterase Rfl SMALL H Procedures - Incision and Drainage Left Lower Abdomen Type: Simple Anesthetic type: 1% Lidocaine w/epi mL's of anesthetic: 2 Blade size: 11 I&D procedure: Iodoform packing placed, Sterile dressing applied Incision Method: Incision made by scalpel Amount/type of drainage: pus 5cc's Discharge - Discharge Clinical Impression: Abdominal wall abscess Condition: Stable Disposition: HOME, SELF-CARE Instructions: Abscess ([facility]), Oral Narcotic Medication ([facility]), Post Incision and Drainage, Trimethoprim-Sulfa ([facility]), MRSA Cellulitis ([facility]) Additional Instructions: Please return in approximately 48 hours for a recheck of your abscess Prescriptions: Sulfamethoxazole/Trimethoprim [Bactrim Ds Tablet] 1 each PO BID 5 Days #10 tablet Hydrocodone/Acetaminophen [[place] 5-325 mg Tablet] 1 tab PO Q6 PRN 3 Days #12 tablet PRN Reason: Forms: Elevated Blood Pressure
== END 2019-04-05 14:36 | disposition home or self-care (01) ==
LOC: ER 10:58
DX: L02.215 Cutaneous abscess of perineum (principal); E11.9 Type 2 diabetes mellitus without complications; Z79.4 Long term (current) use of insulin; Z79.899 Other long term (current) drug therapy; Z88.0 Allergy status to penicillin
CPT/HCPCS: 99283; 36415; 85025; 80053; 81001; 10060; J3490

== ENCOUNTER 2019-04-07 06:26 | Emergency (ER) | payer SELFPAY ==
--- NOTE | 2019-04-07 08:30 | ER Document Report ---
HPI - HPI Time Seen by Provider: 04/07/19 08:13 Pain Level: 3 Notes: Patient is a 49-year-old female presents for wound recheck status post incision and drainage performed a couple days ago to the left pubic area. Patient states that she has been performing dressing changes. She does continue to have some soreness, but has noticed improvement overall in her symptoms. She has no history of MRSA. She is currently on Bactrim. Patient does have a history of diabetes. Denies any headache, fever, neck pain, URI, sore throat, chest pain, palpitations, syncope, cough, shortness of breath, wheeze, dyspnea, abdominal pain, nausea/vomiting/diarrhea, urinary retention, dysuria, hematuria, or rash. - ROS Systems Reviewed and Negative: Yes All other systems reviewed and negative - CONSTITUTIONAL Constitutional: DENIES: Fever, Chills - REPRODUCTIVE LMP: current Reproductive: DENIES: : Past Medical History - Social History Smoking Status: Current Every Day Smoker Frequency of alcohol use: None Drug Abuse: None Family History: Arthritis, CAD, COPD, CVA, DM, Hyperlipidemia, Hypertension, Malignancy. denies: Thyroid Disfunction Patient has suicidal ideation: No Patient has homicidal ideation: No - Past Medical History Cardiac Medical History: Denies: Hx Coronary Artery Disease, Hx Heart Attack, Hx Hypertension Pulmonary Medical History: Reports: Hx Asthma - A CHILD, Hx Bronchitis, Hx Pneumonia Denies: Hx COPD Neurological Medical History: Denies: Hx Cerebrovascular Accident, Hx Seizures Endocrine Medical History: Reports: Hx Diabetes Mellitus Type 2 Renal/ Medical History: Denies: Hx Peritoneal Dialysis GI Medical History: Reports: Hx Gastroesophageal Reflux Disease Musculoskeletal Medical History: Reports Hx Arthritis - HANDS, Reports Hx Musculoskeletal Deformity - Carpal tunnel, Reports Hx Musculoskeletal Trauma Traumatic Medical History: Reports: Hx Fractures - Fifth toe left foot Past Surgical History: Reports: Hx Appendectomy, Hx Orthopedic Surgery - Carpal tunnel left - Immunizations Hx Diphtheria, Pertussis, Tetanus Vaccination: Yes Vertical Provider Document - CONSTITUTIONAL Agree With Documented VS: Yes Notes: PHYSICAL EXAMINATION: GENERAL: Well-appearing, well-nourished and in no acute distress. LUNGS: Breath sounds clear to auscultation bilaterally and equal. No wheezes rales or rhonchi. HEART: Regular rate and rhythm without murmurs, rubs, gallops. ABDOMEN: Soft, nontender, nondistended abdomen. No guarding, no rebound. Normal bowel sounds present. No CVA tenderness bilaterally. Musculoskeletal: FROM to passive/active. Strength 5+/5. Extremities: No cyanosis, clubbing, or edema b/l. Peripheral pulses 2+. Capillary refill less than 3 seconds. NEUROLOGICAL: Normal speech, normal gait. PSYCH: Normal mood, normal affect. SKIN: there is noted the area of I&D that has very mild erythema associated with scant drainage. + mild tenderness remains, but overall appears to be healing. No streaks. - INFECTION CONTROL TRAVEL OUTSIDE OF THE [place] IN LAST 30 DAYS: No Course - Re-evaluation Re-evalutation: 04/07/19 08:28 Patient is an afebrile, well-hydrated, 49-year-old female who presents for wound recheck of I&D that was performed a couple days ago. Vitals are acceptable wi thout significant tachycardia, tachypnea, or hypoxia. PE is otherwise unremarkable. Patient is nontoxic-appearing and is tolerating p.o. without difficulty. Packing was removed and replaced. Patient to continue her medicines as directed. Low suspicion for any systemic or emergent condition at this time otherwise. Patient to recheck with your PCM in 3 to 5 days. Return to the ED with any other worsening/concerning symptoms. Patient is in agreement. - Vital Signs Vital signs: Temp Pulse Resp BP Pulse Ox 97.6 F 89 16 124/74 99 04/07/19 06:32 04/07/19 06:32 04/07/19 06:32 04/07/19 06:32 04/07/19 06:32 Discharge - Discharge Clinical Impression: Encounter for wound re-check Condition: Stable Disposition: HOME, SELF-CARE Additional Instructions: Keep the skin clean Wash with soap and water Tylenol/ibuprofen if needed Triple antibiotic ointment daily Epsom salt soaks Take medication as directed Monitor for any worsening symptoms Recheck with your PCM in 3-5 days Consider consult with General Surgeon for ongoing/worsening symptoms Return to the ED with any worsening symptoms and/or development of fever, headache, chest pain, palpitations, syncope, shortness of breath, trouble breathing, abdominal pain, n/v/d, abscess, purulent discharge, red streaks, worsening swelling, or other worsening symptoms that are concerning to you. Forms: Smoking Cessation Education Referrals: [facility] [Provider Group] - Follow up as needed RONA HERNANDEZ MD [ACTIVE STAFF] - Follow up as needed
[2019-04-07 08:48] VITALS: BP 122/70
== END 2019-04-07 08:46 | disposition home or self-care (01) ==
LOC: ER 06:26
DX: Z48.01 Encounter for change or removal of surgical wound dressing (principal); E11.9 Type 2 diabetes mellitus without complications; F17.200 Nicotine dependence, unspecified, uncomplicated
CPT/HCPCS: 99282

== ENCOUNTER 2019-09-14 22:55 | Emergency (ER) | payer SELFPAY ==
[2019-09-14] MEDS ORDERED: KETOROLAC TROMETHAMINE 60 MG/2 ML SDV IM ONE (23:05)
--- NOTE | 2019-09-14 23:14 | ER Document Report ---
ED Medical Screen (RME) - General Stated Complaint: BACK PAIN Time Seen by Provider: 09/14/19 22:59 Mode of Arrival: Ambulatory Information source: Patient Notes: 49-year-old female with history of diabetes presents to the emergency department with complaints of right-sided low back pain that radiates down her right leg and now making her right knee feel like it is on fire. She complains of right knee pain little bit of swelling and burning. Denies trauma. Has history of low back pain. Denies fever vomiting diarrhea. Denies pain with void. Patient reports she is used naproxen and somebody else's muscle relaxer without relief of symptoms. I have greeted and performed a rapid initial assessment of this patient. A comprehensive ED assessment and evaluation of the patient, analysis of test results and completion of the medical decision making process will be conducted by additional ED providers. TRAVEL OUTSIDE OF THE [place] IN LAST 30 DAYS: No - HPI Quality of pain: Achy, Burning Associated Symptoms: None Exacerbated by: Movement Relieved by: Denies Similar symptoms previously: Yes Recently seen / treated by doctor: No - Related Data Allergies/Adverse Reactions: Penicillins Allergy (Verified 09/24/17 17:47) Past Medical History - Past Medical History Cardiac Medical History: Denies: Hx Coronary Artery Disease, Hx Heart Attack, Hx Hypertension Pulmonary Medical History: Reports: Hx Asthma - A CHILD, Hx Bronchitis, Hx Pneumonia Denies: Hx COPD Neurological Medical History: Denies: Hx Cerebrovascular Accident, Hx Seizures Endocrine Medical History: Reports: Hx Diabetes Mellitus Type 2 Renal/ Medical History: Denies: Hx Peritoneal Dialysis GI Medical History: Reports: Hx Gastroesophageal Reflux Disease Musculoskeltal Medical History: Reports Hx Arthritis - HANDS, Reports Hx Musculoskeletal Deformity - Carpal tunnel, Reports Hx Musculoskeletal Trauma Traumatic Medical History: Reports: Hx Fractures - Fifth toe left foot Past Surgical History: Reports: Hx Appendectomy, Hx Orthopedic Surgery - Carpal tunnel left - Immunizations Hx Diphtheria, Pertussis, Tetanus Vaccination: Yes
[2019-09-14] MEDS ORDERED: DEXAMETHASONE SOD PHOS INJ 10 MG/1 ML VIAL IM ONE (23:34)
--- NOTE | 2019-09-14 23:37 | ER Document Report ---
ED General - General Chief Complaint: Back Pain Stated Complaint: BACK PAIN Time Seen by Provider: 09/14/19 22:59 Mode of Arrival: Ambulatory Information source: Patient Notes: qian notes 49-year-old female with history of diabetes presents to the emergency department with complaints of right-sided low back pain that radiates down her right leg and now making her right knee feel like it is on fire. She complains of right knee pain little bit of swelling and burning. Denies trauma. Has history of low back pain. Denies fever vomiting diarrhea. Denies pain with void. Patient reports she is used naproxen and somebody else's muscle relaxer without relief of symptoms. my notes 49-year-old female arrives with 2-week history of right SI lower back pain radiating down the posterior gluteus and thigh to her knee. Also for 1 week she has had anterior knee pain with right lateral knee pain. She felt the knee has a jumping sensation as she places hot warm compresses under her right sided leg knee thigh. Patient denies any left-sided problems. Patient reports 3 years ago she had carpal tunnel surgery by orthopedics and also in 2002 she had left sided carpal tunnel surgery by plastic surgeon. 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 Her friends urged her to come to the emergency room because of her symptoms. Pain is 9 out of 10. She reports she has had injections to her low back many years ago. She denies any fever chills cough cold skin lesions but now complains of pain to her prepatellar bursal area and right lateral knee area. TRAVEL OUTSIDE OF THE [place] IN LAST 30 DAYS: No - HPI Onset: Last week Onset/Duration: Persistent, Worse Quality of pain: Throbbing Severity: Severe Pain Level: 4 Associated symptoms: None Exacerbated by: Movement Relieved by: Remaining still Similar symptoms previously: No Recently seen / treated by doctor: No - Related Data Allergies/Adverse Reactions: Penicillins Allergy (Verified 09/24/17 17:47) Home Medications: Adderall. Lantus. control Past Medical History - General Information source: Patient - Social History Smoking Status: Current Every Day Smoker Cigarette use (# per day): Yes Chew tobacco use (# tins/day): No Smoking Education Provided: Yes Frequency of alcohol use: Occasional Drug Abuse: None Lives with: Family Family History: Arthritis, CAD, COPD, CVA, DM, Hyperlipidemia, Hypertension, Malignancy. denies: Thyroid Disfunction Patient has suicidal ideation: No Patient has homicidal ideation: No - Past Medical History Cardiac Medical History: Denies: Hx Coronary Artery Disease, Hx Heart Attack, Hx Hypertension Pulmonary Medical History: Reports: Hx Asthma - A CHILD, Hx Bronchitis, Hx Pneumonia Denies: Hx COPD Neurological Medical History: Denies: Hx Cerebrovascular Accident, Hx Seizures Endocrine Medical History: Reports: Hx Diabetes Mellitus Type 2 Renal/ Medical History: Denies: Hx Peritoneal Dialysis GI Medical History: Reports: Hx Gastroesophageal Reflux Disease Musculoskeletal Medical History: Reports Hx Arthritis - HANDS, Reports Hx Musculoskeletal Deformity - Carpal tunnel, Reports Hx Musculoskeletal Trauma Traumatic Medical History: Reports: Hx Fractures - Fifth toe left foot Past Surgical History: Reports: Hx Appendectomy, Hx Orthopedic Surgery - Carpal tunnel left - Immunizations Hx Diphtheria, Pertussis, Tetanus Vaccination: Yes Review of Systems - Review of Systems Constitutional: No symptoms reported EENT: No symptoms reported Cardiovascular: No symptoms reported Respiratory: No symptoms reported Gastrointestinal: No symptoms reported Genitourinary: No symptoms reported Female Genitourinary: No symptoms reported Musculoskeletal: No symptoms reported Skin: No symptoms reported Hematologic/Lymphatic: No symptoms reported Neurological/Psychological: No symptoms reported Physical Exam - Vital signs Vitals: Temp 98.4 F 09/14/19 23:00 Course - Vital Signs Vital signs: Temp Pulse Resp BP Pulse Ox 98.4 F 98 18 147/90 H 100 09/14/19 23:08 09/14/19 23:08 09/14/19 23:08 09/14/19 23:08 09/14/19 23:08 Discharge - Discharge Clinical Impression: Other bursitis of knee, right knee, Sacroiliac joint disease Condition: Good Disposition: HOME, SELF-CARE Additional Instructions: Follow-up with Dr. Pavon orthopedics; this week return to ER as needed; take medicines as directed; avoid using right knee and right SI joint of your pelvis back area Prescriptions: Lidocaine [Lidoderm 5% (700 mg) Transdermal Patch] 1 patch TP DAILY #30 adh..patch Forms: Return to Work
[2019-09-14] MEDS ORDERED: LIDOCAINE 5% (700 MG) TRANSDERMAL ADH..PATCH TP ONE (23:51)
--- NOTE | 2019-09-15 00:06 | RADIOLOGY REPORT (SQ) ---
CLINICAL INDICATION: pain swelling . . TECHNIQUE: 4 view(s) were obtained of the right knee. COMPARISON: None. FINDINGS: No acute displaced fracture is identified of the knee. Alignment appears anatomic. Osteoarthritis. No significant joint effusion. Surrounding soft tissues are unremarkable. IMPRESSION: No evidence of acute displaced fracture of the knee.
[2019-09-15 00:38] VITALS: BP 140/81
--- NOTE | 2019-09-15 00:39 | RADIOLOGY REPORT (SQ) ---
INDICATION: low back pain. TECHNIQUE: 3 view(s) of the lumbar spine. COMPARISON: March 23, 2017 FINDINGS: No evidence of acute displaced fracture. Alignment is anatomic. The facets and intervertebral joints are within normal limits for age. Vertebral body heights are well-maintained. Surrounding soft tissues are unremarkable. Shallow levoconvex curvature, likely positional on the supine image. IMPRESSION: No evidence of acute displaced fracture of the lumbar spine.
== END 2019-09-15 00:22 | disposition home or self-care (01) ==
LOC: ER 22:55
DX: M53.3 Sacrococcygeal disorders, not elsewhere classified (principal); M70.51 Other bursitis of knee, right knee; E11.9 Type 2 diabetes mellitus without complications; Z79.899 Other long term (current) drug therapy; Z79.4 Long term (current) use of insulin; Z79.3 Long term (current) use of hormonal contraceptives; F17.210 Nicotine dependence, cigarettes, uncomplicated; Z88.0 Allergy status to penicillin
CPT/HCPCS: 99283; 96372; 73564; 72100; J1885; J1100

== ENCOUNTER 2019-12-31 02:17 | Emergency (ER) | payer SELFPAY ==
[2019-12-31 03:45] LABS: APPEARANCE,URINE CLOUDY; BILIRUBIN,URINE NEGATIVE (NEGATIVE); COLOR,URINE YELLOW; GLUCOSE, URINE 150 mg/dL (NEGATIVE); KETONES,URINE NEGATIVE (NEGATIVE); LEUKOCYTE ESTERASE,URINE MODERATE (NEGATIVE); NITRITE,URINE POSITIVE (NEGATIVE); PROTEIN,URINE NEGATIVE (NEGATIVE); URINE SPECIFIC GRAVITY 1.025
[2019-12-31 09:59] VITALS: BP 144/88
--- NOTE | 2019-12-31 10:06 | ER Document Report ---
ED General - General Chief Complaint: Urinary Problem Stated Complaint: POSSIBLE ABCESS/POSSIBLE UTI Time Seen by Provider: 12/31/19 09:56 Mode of Arrival: Ambulatory Information source: Patient Notes: Patient is a 41-year-old female comes emergency room complaining of urinary tract infection symptoms for the past 3 to 4 days. She also has a spot on the left adventism area that appears to be a staph infection. 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 It is very itchy. Patient also states she is getting frequent UTIs is talked to her primary care provider about it and they are working on resolution of that to. She denies any fevers nausea vomiting or diarrhea. No shortness of breath. Patient is an insulin-dependent diabetic. And she does smoke. TRAVEL OUTSIDE OF THE [place] IN LAST 30 DAYS: No - HPI Onset: Last week Onset/Duration: Gradual, Persistent, Worse Quality of pain: Achy, Pressure Pain Level: 3 Associated symptoms: Nausea Exacerbated by: Denies Relieved by: Denies Similar symptoms previously: Yes Recently seen / treated by doctor: No - Related Data Allergies/Adverse Reactions: Penicillins Allergy (Verified 09/24/17 17:47) Home Medications: lantus, gliberide, adderal, omeprazole, Past Medical History - General Information source: Patient - Social History Smoking Status: Current Every Day Smoker Cigarette use (# per day): Yes - Half pack Chew tobacco use (# tins/day): No Smoking Education Provided: No Frequency of alcohol use: None Drug Abuse: None Lives with: Family Family History: Arthritis, CAD, COPD, CVA, DM, Hyperlipidemia, Hypertension, Malignancy. denies: Thyroid Disfunction Patient has homicidal ideation: No - Past Medical History Cardiac Medical History: Denies: Hx Coronary Artery Disease, Hx Heart Attack, Hx Hypertension Pulmonary Medical History: Reports: Hx Asthma - A CHILD, Hx Bronchitis, Hx Pneumonia Denies: Hx COPD Neurological Medical History: Denies: Hx Cerebrovascular Accident, Hx Seizures Endocrine Medical History: Reports: Hx Diabetes Mellitus Type 2 Renal/ Medical History: Denies: Hx Peritoneal Dialysis GI Medical History: Reports: Hx Gastroesophageal Reflux Disease Musculoskeletal Medical History: Reports Hx Arthritis - HANDS, Reports Hx Musculoskeletal Deformity - Carpal tunnel, Reports Hx Musculoskeletal Trauma Traumatic Medical History: Reports: Hx Fractures - Fifth toe left foot Past Surgical History: Reports: Hx Appendectomy, Hx Orthopedic Surgery - Carpal tunnel left - Immunizations Hx Diphtheria, Pertussis, Tetanus Vaccination: Yes Review of Systems - Review of Systems Constitutional: No symptoms reported EENT: No symptoms reported Cardiovascular: No symptoms reported Respiratory: No symptoms reported Gastrointestinal: No symptoms reported Genitourinary: See HPI, Burning, Dysuria, Frequency Female Genitourinary: No symptoms reported Musculoskeletal: No symptoms reported Skin: See HPI, Lesions Hematologic/Lymphatic: No symptoms reported Neurological/Psychological: No symptoms reported -: Yes All other systems reviewed and negative Physical Exam - Vital signs Vitals: Temp Pulse Resp BP Pulse Ox 97.9 F 91 12 142/69 H 100 12/31/19 02:22 12/31/19 02:22 12/31/19 02:22 12/31/19 02:22 12/31/19 02:22 Interpretation: Hypertensive - Notes Notes: PHYSICAL EXAMINATION: GENERAL: Well-appearing, well-nourished and in no acute distress. HEAD: Atraumatic, normocephalic. LUNGS: Breath sounds clear to auscultation bilaterally and equal. No wheezes rales or rhonchi. HEART: Regular rate and rhythm without murmurs ABDOMEN: Soft, nontender, nondistended abdomen. No guarding, no rebound. No masses appreciated. There is however mild tenderness to palpation in the suprapubic region. Female : deferred Musculoskeletal: Normal range of motion, no pitting or edema. No cyanosis. NEUROLOGICAL: t. Normal speech, normal gait. Normal sensory, motor exams PSYCH: Normal mood, normal affect. SKIN: Patient has a 1 x 2 cm area on the left adventism that is a scaly grayish type lesion apparently staph appearing type presentation. Course - Re-evaluation Re-evalutation: 12/31/19 10:04 Patient's urine comes back with esterase and nitrites positive. We will treat her with some Bactrim which also cover the staph infection of the skin. She will follow-up with her primary care provider. - Vital Signs Vital signs: Temp Pulse Resp BP Pulse Ox 97.6 F 88 18 144/88 H 97 12/31/19 09:58 12/31/19 09:58 12/31/19 09:58 12/31/19 09:58 12/31/19 09:58 - Laboratory Laboratory results interpreted by me: 12/31/19 03:30 Urine Glucose (UA) 150 H Urine Nitrite POSITIVE H Urine Urobilinogen 2.0 H Ur Leukocyte Esterase MODERATE H Discharge - Discharge Clinical Impression: Urinary tract infection Qualifiers: Urinary tract infection type: site unspecified Hematuria presence: without hematuria Qualified Code(s): N39.0 - Urinary tract infection, site not specified Disposition: HOME, SELF-CARE Instructions: Trimethoprim-Sulfa ([facility]), Urinary Anesthetic Agent ([facility]), Urinary Tract Infection ([facility]) Additional Instructions: Home and rest. Use the cream on the adventism area for the staph infection. Take antibiotics until completion. Return to work on Friday. Return to ER if you have any concerns or problems especially to spike a temperature or your symptoms are getting worse. Prescriptions: Sulfamethoxazole/Trimethoprim [Bactrim Ds Tablet] 1 each PO BID #20 tablet Mupirocin [Bactroban 2% Ointment 22 gm] 1 applic TP TID #1 tube Phenazopyridine HCl [Pyridium 200 mg Tablet] 200 mg PO TID #15 tablet Forms: Elevated Blood Pressure, Smoking Cessation Education, Return to Work
== END 2019-12-31 10:13 | disposition home or self-care (01) ==
LOC: ER 02:17
DX: N39.0 Urinary tract infection, site not specified (principal); L08.9 Local infection of the skin and subcutaneous tissue, unspecified; B95.8 Unspecified staphylococcus as the cause of diseases classified elsewhere; R11.0 Nausea; E11.9 Type 2 diabetes mellitus without complications; K21.9 Gastro-esophageal reflux disease without esophagitis; F17.210 Nicotine dependence, cigarettes, uncomplicated; Z79.899 Other long term (current) drug therapy; Z79.4 Long term (current) use of insulin; Z88.0 Allergy status to penicillin
CPT/HCPCS: 81001; 81025; 99283

== ENCOUNTER 2020-06-08 19:27 | Emergency (ER) | payer SELFPAY ==
[2020-06-08] MEDS ORDERED: KETOROLAC TROMETHAMINE 60 MG/2 ML SDV IM ONE (20:27)
--- NOTE | 2020-06-08 20:29 | ER Document Report ---
ED Medical Screen (RME) - General Chief Complaint: Hip Pain Stated Complaint: LEFT HIP AND LEG PAIN Time Seen by Provider: 06/08/20 20:21 Mode of Arrival: Wheelchair Information source: Patient Notes: 50-year-old female patient presenting to the emergency department with chief complaint of severe left low back and hip pain. Patient reports history of sciatica, states that last time she had this act up was in February, at that time she was prescribed Flexeril and tramadol. Today she took both of these medications with no relief. Patient denies any loss of control of bowel or bladder, denies any urinary retention or saddle anesthesia. She reports this pain feels worse than her usual flareup of low back pain. Tenderness in the left lumbar paraspinous region, no vertebral tenderness, step- off or deformity. Exam limited due to seated position in triage. Patient declines any narcotics stating that they make her severely ill. I have greeted and performed a rapid initial assessment of this patient. A comprehensive ED assessment and evaluation of the patient, analysis of test results and completion of the medical decision making process will be conducted by additional ED providers. I have specifically instructed the patient or family members with the patient to immediately return to any nursing staff should anything change in the patient's condition or with their chief complaint. TRAVEL OUTSIDE OF THE [place] IN LAST 30 DAYS: No - Related Data Allergies/Adverse Reactions: Penicillins Allergy (Verified 09/24/17 17:47) Home Medications: tramadol Past Medical History - Past Medical History Cardiac Medical History: Denies: Hx Coronary Artery Disease, Hx Heart Attack, Hx Hypertension Pulmonary Medical History: Reports: Hx Asthma - A CHILD, Hx Bronchitis, Hx Pneumonia Denies: Hx COPD Neurological Medical History: Denies: Hx Cerebrovascular Accident, Hx Seizures Endocrine Medical History: Reports: Hx Diabetes Mellitus Type 2 Renal/ Medical History: Denies: Hx Peritoneal Dialysis GI Medical History: Reports: Hx Gastroesophageal Reflux Disease Musculoskeltal Medical History: Reports Hx Arthritis - HANDS, Reports Hx Musculoskeletal Deformity - Carpal tunnel, Reports Hx Musculoskeletal Trauma Traumatic Medical History: Reports: Hx Fractures - Fifth toe left foot Past Surgical History: Reports: Hx Appendectomy, Hx Orthopedic Surgery - Carpal tunnel left - Immunizations Hx Diphtheria, Pertussis, Tetanus Vaccination: Yes Physical Exam - Vital signs Vitals: Temp Pulse Resp BP Pulse Ox 97.4 F 97 18 149/70 H 100 06/08/20 19:32 06/08/20 19:32 06/08/20 19:32 06/08/20 19:32 06/08/20 19:32 Course - Vital Signs Vital signs: Temp Pulse Resp BP Pulse Ox 97.4 F 97 18 149/70 H 100 06/08/20 19:32 06/08/20 19:32 06/08/20 19:32 06/08/20 19:32 06/08/20 19:32
--- NOTE | 2020-06-08 21:09 | RADIOLOGY REPORT (SQ) ---
EXAM DESCRIPTION: CT LUMBAR SPINE WITHOUT IV CONTRAST COMPLETED DATE/TME: 06/08/2020 20:44 CLINICAL HISTORY: 50 years, Female, severe low back pain COMPARISON: None. TECHNIQUE: Axial images without IV contrast. Sagittal coronal reconstruction. Images stored on PACS. All CT scanners at this facility use dose modulation, iterative reconstruction, and/or weight based dosing when appropriate to reduce radiation dose to as low as reasonably achievable (ALARA). FINDINGS: No evidence for fracture dislocation. No suspicious paraspinal soft tissue abnormalities. . T11-T12 T12-L1: Within normal limits. L1-L2, L2-3 and L3-4: Mild degenerative changes without significant stenosis. L4-5: Discopathy with severe central stenosis. Additional calcifications involving the ligamentum flavum and the soft tissues between the spinous processes of L4 and L5. Moderate bilateral foraminal stenosis. L5-S1: No significant central foraminal stenosis. IMPRESSION: 1. Severe central stenosis at L4-5. Moderate foraminal stenosis. 2. Nonspecific sclerosis of the iliac portion of the sacroiliac joints bilaterally. This is usually not a significant finding.
--- NOTE | 2020-06-08 22:25 | ER Document Report ---
ED Hip Pain/Injury - General Chief Complaint: Hip Pain Stated Complaint: LEFT HIP AND LEG PAIN Time Seen by Provider: 06/08/20 20:21 Mode of Arrival: Wheelchair Information source: Patient Notes: ED Medical Screen (Joshua Barraza) - General Chief Complaint: Hip Pain Stated Complaint: LEFT HIP AND LEG PAIN Time Seen by Provider: 06/08/20 20:21 Mode of Arrival: Wheelchair Information source: Patient Notes: 50-year-old female patient presenting to the emergency department with chief complaint of severe left low back and hip pain. Patient reports history of sciatica, states that last time she had this act up was in February, at that time she was prescribed Flexeril and tramadol. Today she took both of these medications with no relief. Patient denies any loss of control of bowel or bladder, denies any urinary retention or saddle anesthesia. She reports this pain feels worse than her usual flareup of low back pain. Tenderness in the left lumbar paraspinous region, no vertebral tenderness, step- off or deformity. Exam limited due to seated position in triage. Patient declines any narcotics stating that they make her severely ill. MY NOTES 50-year-old female arrives with chief complaint of left lower back and hip pain. She has a prior history of sciatica. Patient reports she has had this for a few years now. It is usually controlled by Flexeril and tramadol. She had good relief from a shot of Toradol today in her right deltoid. Patient reports her flareup occurred beginning yesterday around 1530 as she sat down her couch. 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 She reports her mother used to stoop like this before she last year around this time. Patient denies any other trauma. CT was done today revealing L4-5 stenosis and sacroiliac inflammation. This was read by radiologist. Patient has not used [id number] Voltaren gel but does have a prescription for this. I advised that she may use the [id number] type. TRAVEL OUTSIDE OF THE [place] IN LAST 30 DAYS: No - HPI Patient complains to provider of: Pain, Pelvis Occurred: Yesterday Where: Home Onset/Duration: Sudden, Persistent, Worse Severity: Moderate Pain Level: 4 Context: No trauma. denies: Fainted, Fell/lost balance, Fell/slipped, Fell/tripped Skin Color: Normal - Related Data Allergies/Adverse Reactions: Penicillins Allergy (Verified 09/24/17 17:47) Home Medications: tramadol Past Medical History - General Information source: Patient - Social History Smoking Status: Unknown if Ever Smoked Cigarette use (# per day): Yes Chew tobacco use (# tins/day): No Smoking Education Provided: Yes Frequency of alcohol use: None - Quit drinking alcohol many years ago now diagnosed with [place] Drug Abuse: None Lives with: Family Family History: Arthritis, CAD, COPD, CVA, DM, Hyperlipidemia, Hypertension, Malignancy. denies: Thyroid Disfunction Patient has suicidal ideation: No Patient has homicidal ideation: No - Past Medical History Cardiac Medical History: Denies: Hx Coronary Artery Disease, Hx Heart Attack, Hx Hypertension Pulmonary Medical History: Reports: Hx Asthma - A CHILD, Hx Bronchitis, Hx Pneumonia Denies: Hx COPD Neurological Medical History: Denies: Hx Cerebrovascular Accident, Hx Seizures Endocrine Medical History: Reports: Hx Diabetes Mellitus Type 2 Renal/ Medical History: Denies: Hx Peritoneal Dialysis GI Medical History: Reports: Hx Gastroesophageal Reflux Disease Musculoskeletal Medical History: Reports Hx Arthritis - HANDS, Reports Hx Musculoskeletal Deformity - Carpal tunnel, Reports Hx Musculoskeletal Trauma Traumatic Medical History: Reports: Hx Fractures - Fifth toe left foot Past Surgical History: Reports: Hx Appendectomy, Hx Orthopedic Surgery - Carpal tunnel left - Immunizations Hx Diphtheria, Pertussis, Tetanus Vaccination: Yes Review of Systems - Review of Systems Constitutional: No symptoms reported EENT: No symptoms reported Cardiovascular: No symptoms reported Respiratory: No symptoms reported Gastrointestinal: No symptoms reported Genitourinary: No symptoms reported Female Genitourinary: No symptoms reported Musculoskeletal: See HPI, Back pain, Muscle stiffness Skin: No symptoms reported Hematologic/Lymphatic: No symptoms reported Neurological/Psychological: No symptoms reported -: Yes All other systems reviewed and negative Physical Exam - Vital signs Vitals: Temp Pulse Resp BP Pulse Ox 97.4 F 97 18 149/70 H 100 06/08/20 19:32 06/08/20 19:32 06/08/20 19:32 06/08/20 19:32 06/08/20 19:32 Interpretation: Hypertensive - General General appearance: Appears well, Alert - HEENT Head: Normocephalic, Atraumatic Eyes: Normal Pupils: PERRL - Respiratory Respiratory status: No respiratory distress Chest status: Nontender Breath sounds: Normal Chest palpation: Normal - Cardiovascular Rhythm: Regular Heart sounds: Normal auscultation Murmur: No - Abdominal Inspection: Normal Distension: No distension Bowel sounds: Normal Tenderness: Nontender Organomegaly: No organomegaly - Rectal Hemorrhoids: Other - deferred - Genitourinary Bimanuel exam: Other - Deferred - Back Back: Normal, Tender - Tender LS area and also bilateral SI joints on palpation - Extremities General upper extremity: Normal inspection, Nontender, Normal color, Normal ROM, Normal temperature General lower extremity: Normal inspection, Nontender, Normal color, Normal ROM, Normal temperature, Normal weight bearing. No: Juan's sign - Neurological Neuro grossly intact: Yes Cognition: Normal Orientation: AAOx4 [place] Coma Scale Eye Opening: Spontaneous [place] Coma Scale Verbal: Oriented [place] Coma Scale Motor: Obeys Commands [place] Coma Scale Total: 15 Speech: Normal Motor strength normal: LUE, RUE, LLE, RLE Sensory: Normal - Psychological Associated symptoms: Normal affect, Normal mood - Skin Skin Temperature: Warm Skin Moisture: Dry Skin Color: Normal Course - Vital Signs Vital signs: Temp Pulse Resp BP Pulse Ox 97.9 F 90 16 127/66 H 100 06/08/20 22:28 06/08/20 22:28 06/08/20 22:28 06/08/20 22:28 06/08/20 22:28 - Laboratory Results Critical Laboratory Results Reviewed: No Critical Results Attending or Supervising Physician who Reviewed Labs: ORAL POTTS JR - Radiology Results Critical Radiology Results Reviewed: Yes Attending or Supervising Physician who Reviewed Radiology: ORAL POTTS JR Discharge - Discharge Clinical Impression: IDDM (insulin dependent diabetes mellitus), Sciatica of left side Clinical Impression: (Ruled Out): Sciatica of right side Condition: Stable Disposition: HOME, SELF-CARE Additional Instructions: Follow-up with personal doctor about your diabetes and also with orthopedics Dr. Juan about your sciatica. Return to ER as needed take medicines as directed May use [id number] Voltaren gel as needed on your arthritis pains. Prescriptions: Doxycycline Hyclate 100 mg PO DAILY 10 Days #10 cap Chlorzoxazone [Parafon Forte Dsc 500 Mg Tablet] 500 mg PO BID #20 tablet Forms: Return to Work
[2020-06-08] MEDS ORDERED: DEXAMETHASONE SOD PHOS INJ 10 MG/1 ML VIAL IM ONE (22:41)
[2020-06-08 23:46] VITALS: BP 123/71
== END 2020-06-09 00:02 | disposition home or self-care (01) ==
LOC: ER 19:27
DX: M48.061 Spinal stenosis, lumbar region without neurogenic claudication (principal); M54.42 Lumbago with sciatica, left side; E11.9 Type 2 diabetes mellitus without complications; Z79.899 Other long term (current) drug therapy; Z88.0 Allergy status to penicillin
CPT/HCPCS: 99285; 96372; 72131; J1885; J1100